=== PATIENT | female | born 1995 | race Caucasian/White ===

== ENCOUNTER 2019-04-28 12:23 | Inpatient (IN) | payer SELFPAY ==
[~2019-04-28] VITALS: Ht 182.9 cm; Wt 84.1 kg
[2019-04-28] VITALS (24 sets, daily range): BP systolic 56–148; BP diastolic 23–85
[2019-04-28] MEDS ORDERED: OXYTOCIN/NORMAL SALINE 500 ML IV SCH (12:36)
[2019-04-28] MEDS ORDERED: MINERAL OIL CONCENTRATE 99.9% 15 ML UDC TOP PRN (12:45)
[2019-04-28] MEDS ORDERED: AMPICILLIN FOR IV USE 2,000 MG in WATER (STERILE) FOR INJECTION 14.8 ML IV ONE (13:00)
[2019-04-28 13:11] LABS: BASOPHILS % (AUTO) 0 % (0-10); EOSINOPHILS # (AUTO) 0.1 10^3/uL (0.0-0.3); EOSINOPHILS % (AUTO) 1 % (0-10); HEMATOCRIT 35 % (35-52); HEMOGLOBIN 11.7 G/DL (11.5-16.0); LYMPHOCYTES # (AUTO) 1.4 X 10^3 (1.0-4.0); LYMPHOCYTES % (AUTO) 14 % (12-44); MEAN CORPUSCULAR HEMOGLOBIN 30 PG (25-34); MEAN CORPUSCULAR HGB CONC 34 G/DL (32-36); MEAN CORPUSCULAR VOLUME 88 FL (80-99); MEAN PLATELET VOLUME 8.7 FL (7.4-10.4); MONOCYTES # (AUTO) 0.8 X 10^3 (0.0-1.0); MONOCYTES % (AUTO) 8 % (0-12); NEUTROPHILS # (AUTO) 7.9 X 10^3 (1.8-7.8); NEUTROPHILS % (AUTO) 78 % (42-75); PLATELET COUNT 206 10^3/uL (130-400); RED CELL DISTRIBUTION WIDTH 15.8 % (10.0-14.5); WHITE BLOOD COUNT 10.1 10^3/uL (4.3-11.0)
[2019-04-28] MEDS: D5 LR IV SOLUTION 1,000 ML IV SCH ×2 (13:15→20:13)
[2019-04-28] MEDS: CATHETER FLUSH 10 ML SYR IV SCH ×2 (14:34→22:05)
[2019-04-28] MEDS ORDERED: PREN1TAB79 PO (14:54)
[2019-04-28] MEDS ORDERED: LIDOCAINE 1% INJ 20 ML 20 ML VIAL ONE ×3 (15:08→16:08)
[2019-04-28] MEDS ORDERED: fentaNYL INJECTION 100 MCG/2 ML AMP ONE ×2 (16:19→16:38)
[2019-04-28] MEDS: LACTATED RINGERS 1,000 ML IV SCH ×3 (16:30→19:47)
[2019-04-28] MEDS ORDERED: MIDAZOLAM 2 MG/2 ML (VERSED) VIAL ONE ×2 (16:38→18:25)
[2019-04-28] MEDS ORDERED: ETOMIDATE IV SOLN 20 MG/10 ML VIAL ONE (16:38)
[2019-04-28] MEDS ORDERED: SEVOFLURANE (ULTANE) 15 ML INHAL SOLN ONE ×2 (16:38→18:50)
[2019-04-28] MEDS ORDERED: SUCCINYLCHOLINE INJ 100 MG/5 ML SYR ONE (16:38)
[2019-04-28] MEDS ORDERED: ONDANSETRON 4 MG/2 ML (SDV) Z0FRAN ONE ×2 (16:38→17:19)
[2019-04-28] MEDS ORDERED: DEXAMETHASONE 10 MG/ML (DECADRON) 1 ML VIAL ONE (16:38)
[2019-04-28] MEDS ORDERED: NS IV 500 ML 500 ML IV NR (16:47)
[2019-04-28] MEDS ORDERED: NITRO DRIP 25000 MCG/D5W 0 ML IV ONE (16:55)
[2019-04-28] MEDS ORDERED: AMPICILLIN FOR IV USE 1,000 MG in WATER (STERILE) FOR INJECTION 7.4 ML IV SCH (17:00)
[2019-04-28] MEDS ORDERED: NS IV 500 ML 500 ML IV SCH ×2 (17:00→17:30)
[2019-04-28] MEDS ORDERED: ALBUMIN 5% 12.5 GM/250 ML 250 ML IV ONE ×2 (17:01)
[2019-04-28] MEDS ORDERED: HYDROmorphone 2 MG/ML VIAL (DILAUDID) ONE (17:19)
[2019-04-28] MEDS ORDERED: METHYLERGONOVINE 0.2 MG/ML (METHERGINE) AMP ONE ×2 (17:23→18:41)
[2019-04-28] MEDS ORDERED: NS IV 1000 ML 1,000 ML ONE ×2 (17:36→17:46)
[2019-04-28 18:06] LABS: HEMOGLOBIN 7.8 G/DL (11.5-16.0); MEAN PLATELET VOLUME 9.5 FL (7.4-10.4); RED CELL DISTRIBUTION WIDTH 15.4 % (10.0-14.5); WHITE BLOOD COUNT 23.6 10^3/uL (4.3-11.0)
[2019-04-28 18:14] LABS: INR 1.4 (0.8-1.4); PROTHROMBIN TIME PATIENT 18.1 SEC (12.2-14.7)
--- NOTE | 2019-04-28 18:22 | Pulmonary Consultation ---
History of Present Illness History of Present Illness Date Seen by Provider: Apr 28, 2019 Date of Admission Allergies and Home Medications Allergies Coded Allergies: No Known Drug Allergies (Unverified , 04/28/19) Home Medications Vit W-Ca,Fe,FA(<1 mg) 1 Each Tablet, 1 EACH PO DAILY, (Reported) Past Ayrliee-Gxigbs-Pmoqhw Hx Patient Social History Alcohol Use: Denies Use Recreational Drug Use: No Smoking Status: Never a Smoker Recent Foreign Travel: No Contact w/Someone Who Travel: No Recent Infectious Disease Expo: No Recent Hopitalizations: No Seasonal Allergies Seasonal Allergies: No Past Medical History Surgeries: No Respiratory: No Cardiac: No Neurological: No Expected Date of Delivery: Apr 07, 2019 Female Reproductive Disorders: Denies Genitourinary: No Gastrointestinal: No Musculoskeletal: No Endocrine: No HEENT: No Cancer: No Psychosocial: No Integumentary: No Blood Disorders: No Adverse Reaction/Blood Tranf: No Family Medical History Patient reports no known family medical history. Sepsis Event Evaluation Height, Weight, BMI Height: '" Weight: lbs. oz. kg; 25.14 BMI Method: Exam Exam Vital Signs Date Time Temp Pulse Resp B/P (MAP) Pulse Ox O2 Delivery O2 Flow Rate FiO2 04/28/19 15:30 83 16 127/58 (81) 98 Room Air 04/28/19 15:15 88 16 148/85 (106) 98 Room Air 04/28/19 15:00 83 16 117/77 (90) 98 Room Air 04/28/19 14:45 91 16 131/64 (86) 99 Room Air 04/28/19 14:30 80 16 119/64 (82) Room Air 04/28/19 14:15 36.9 86 16 121/72 (88) Room Air 04/28/19 14:00 83 16 116/68 (84) Room Air 04/28/19 12:40 36.8 77 16 120/68 (85) Room Air 04/28/19 12:40 36.8 77 16 98 Room Air Height & Weight Height: '" Weight: lbs. oz. kg; 25.14 BMI Method: Capillary Refill: Less Than 3 Seconds Results Lab Laboratory Tests 04/28/19 13:00 04/28/19 17:55 Assessment/Plan Assessment/Plan Acute respiratory failure -Continue vent -CXR pending -Check ABG Post delivery hemorrhage s/p transfusion -43 wk gestation -s/p 6 units of PRBC, 2 FFP, platelets. -trend H&H Q 6 Hypotension -secondary to hypovolemia improved -IVF -s/p transfusion DALIA PIERRE DO Apr 28, 2019 18:22
[2019-04-28] MEDS ORDERED: PROPOFOL DRIP (ICU) 100 ML IV ONE (18:39)
--- NOTE | 2019-04-28 18:42 | History & Physical-OB/GYN ---
History of Present Illness History of Present Illness Reason for visit/HPI Ms. Montero, A0 at 43 weeks was admitted to Labor & Delivery for onset of labor. Date of Admission Apr 28, 2019 at 12:23 Date Seen by a Provider: Apr 28, 2019 Time Seen by a Provider: 16:30 I consulted on this patient on 04/28/19 18:36 Attending Physician Gerry Mallory DO Admitting Physician Gerry Mallory DO Consult Allergies and Home Medications Allergies Coded Allergies: No Known Drug Allergies (Unverified , 04/28/19) Home Medications Vit W-Ca,Fe,FA(<1 mg) 1 Each Tablet, 1 EACH PO DAILY, (Reported) Patient Home Medication List Home Medication List Reviewed: Yes Past Lobjels-Cqknrv-Siyysj Hx Patient Social History Marrital Status: Number of Children: 1 Number of living children: 1 Employed/Student: unemployed Alcohol Use: Denies Use Recreational Drug Use: No Smoking Status: Never a Smoker Physical Abuse Screen: No Sexual Abuse: No Recent Foreign Travel: No Contact w/other who traveled: No Recent Hopitalizations: No Recent Infectious Disease Expo: No Seasonal Allergies Seasonal Allergies: No Surgeries No Respiratory No Cardiovascular No Neurological No Reproductive System Expected Date of Delivery: Apr 07, 2019 Female Reproductive Disorders: Denies Genitourinary No Gastrointestinal No Musculoskeletal No Endocrine History of Endocrine Disorders: No HEENT History of HEENT Disorders: No Cancer No Psychosocial History of Psychiatric Problem: No Integumentary History of Skin or Integumenta: No Blood Transfusions History of Blood Disorders: No Adverse Reaction to a Blood Tr: No Family Medical History Family Hx: Patient reports no known family medical history. Review of Systems Constitutional: see HPI Physical Exam Physical Exam Vital Signs Vital Signs Date Time Temp Pulse Resp B/P (MAP) Pulse Ox O2 Delivery O2 Flow Rate FiO2 04/28/19 18:25 118 18 140/76 (97) 100 Mechanical Ventilator 04/28/19 15:30 83 16 127/58 (81) 98 Room Air 04/28/19 15:15 88 16 148/85 (106) 98 Room Air 04/28/19 15:00 83 16 117/77 (90) 98 Room Air 04/28/19 14:45 91 16 131/64 (86) 99 Room Air 04/28/19 14:30 80 16 119/64 (82) Room Air 04/28/19 14:15 36.9 86 16 121/72 (88) Room Air 04/28/19 14:00 83 16 116/68 (84) Room Air 04/28/19 12:40 36.8 77 16 120/68 (85) Room Air 04/28/19 12:40 36.8 77 16 98 Room Air Capillary Refill : Less Than 3 Seconds Labs Laboratory Tests 04/28/19 13:00: White Blood Count 10.1, Red Blood Count 3.96L, Hemoglobin 11.7, Hematocrit 35, Mean Corpuscular Volume 88, Mean Corpuscular Hemoglobin 30, Mean Corpuscular Hemoglobin Concent 34, Red Cell Distribution Width 15.8H, Platelet Count 206, Mean Platelet Volume 8.7, Neutrophils (%) (Auto) 78H, Lymphocytes (%) (Auto) 14, Monocytes (%) (Auto) 8, Eosinophils (%) (Auto) 1, Basophils (%) (Auto) 0, Neutrophils # (Auto) 7.9H, Lymphocytes # (Auto) 1.4, Monocytes # (Auto) 0.8, Eosinophils # (Auto) 0.1, Basophils # (Auto) 0.0 04/28/19 17:50: Prothrombin Time 18.1H, INR Comment 1.4, Activated Partial Thromboplast Time 33, Fibrinogen 153L 04/28/19 17:55: White Blood Count 23.6H, Red Blood Count 2.56L, Hemoglobin 7.8#L, Hematocrit 23L , Mean Corpuscular Volume 91, Mean Corpuscular Hemoglobin 30, Mean Corpuscular Hemoglobin Concent 34, Red Cell Distribution Width 15.4H, Platelet Count 192, Mean Platelet Volume 9.5 General Appearance: No Apparent Distress, WD/WN Respiratory: Lungs Clear, Normal Breath Sounds Cardiovascular: Regular Rate, Rhythm, No Murmur Abdominal: normal bowel sounds, non tender Labia: WNL Vagina: WNL Cervix OS: open (Completely dilated) Uterus: Enlarged () Extremity: Normal Inspection, Non Tender Assessment/Plan Assessment and Plan Assessment: Intrauterine at 43 weeks 2. GBS Positive 3. Postterm Admission Diagnosis Admission Status: Inpatient Order (span 2 midnights) Reason for Inpatient Admission: Assessment: Intrauterine at 43 weeks 2. GBS Positive 3. Postterm Clinical Quality Measures DVT/VTE Risk/Contraindication: Risk Factor Score Per Nursin RFS Level Per Nursing on Admit: 1=Low/No VTE PPX GERRY MALLORY DO Apr 28, 2019 18:42
[2019-04-28] MEDS ORDERED: MIDAZOLAM 5 MG/5 ML (VERSED) VIAL ONE (18:44)
[2019-04-28] MEDS ORDERED: DIBUCAINE (NUPERCAINAL) 1% OINT 30 GM TOP PRN (18:45)
[2019-04-28] MEDS ORDERED: WITCH HAZEL(TUCKS) 40 EA JAR TOP PRN (18:45)
[2019-04-28] MEDS ORDERED: MEASLES,MUMPS,RUBELLA 1 EA INJ SQ ONE (18:45)
[2019-04-28] MEDS ORDERED: TETANUS,DIPTH,PERTUSS P/F (BOOSTRIX) 0.5 ML VIAL IM ONE (18:45)
[2019-04-28] MEDS ORDERED: ROCURONIUM 10 MG/ML 5 ML SYRINGE IV ONE (18:50)
[2019-04-28] MEDS ORDERED: PHENYLEPHRINE 100 MCG/ML 10 ML (ANESTHESIA) SYR ONE (18:50)
[2019-04-28] MEDS: METHYLERGONOVINE 0.2 MG/ML (METHERGINE) AMP IM SCH (18:53)
[2019-04-28] MEDS ORDERED: MIDAZOLAM 5 MG/5 ML (VERSED) VIAL IVP ONE (19:00)
--- NOTE | 2019-04-28 19:00 | OB Labor & Delivery Record ---
Vag Delivery Note Vag Delivery Note Date of Delivery: 04/28/19 Preoperative Diagnosis: Anayeli Montero is a (23 /Para / , Gestational Age (wks)43 gestation Postoperative Diagnosis: Intrauterine at 43 weeks gestation 2. Group B Strept Positive 3. Postterm Delivery 4. Macrosomia 5. Inverted Uterus Surgeon: TRUDY HARLEY Driver License Reviewing Officer: [None] Anesthesia: [Pudendal Block] Delivery Type: [Forceps-assisted Vaginal Delivery with Midline Episiotomy and Fourth Degree Extension] Findings: [] Viable [Male] infant, apgars [8, 9], weight [11 lb 10 oz] Lacerations: Midline Episiotomy and Fourth Degree Extension Intact placenta with 3 vessel cord. No nuchal cord, body cord or shoulder dystocia Estimated Blood Loss: [2500 ml] ml Complications: Inverted Uterus, Acute Blood Loss Condition: Critical Description of Procedure: The patient is a 23 year old female who presented [with the onset of labor]. She was admitted and informed consent was obtained. Her labor course was unremarkable. She progressed to complete dilatation and began to push. She was then set up for delivery. The infant's head with the assisted of outlet forceps over a midline episiotomy. The shoulders and remainder of the 's body were then delivered without difficulty. Upon delivery, the head was held below the level of the perineum and the mouth and nares were bulb suctioned. The cord was doubly clamped and cut and the was handed off to the pediatric staff where NRP protocol was followed. The placenta presented without complication, however, it appeared very large and once out, Ms. Montero experi enced excruciating pain. It was noted at that time that she an inverted uterus. I attempted to replace it immediately, but because Ms. Montero didn't have adequate anesthesia, I was unable to. The surgery team was called to take her back to surgery for replacement and laceration repair Examination of the vagina and perineum revealed a fourth degree extension laceration. At this time she was prepared for surgery. See Operative Report Vitals - Labs Vital Signs - I&O Vital Signs Date Time Temp Pulse Resp B/P (MAP) Pulse Ox O2 Delivery O2 Flow Rate FiO2 04/28/19 18:25 118 18 140/76 (97) 100 Mechanical Ventilator 04/28/19 15:30 83 16 127/58 (81) 98 Room Air 04/28/19 15:15 88 16 148/85 (106) 98 Room Air 04/28/19 15:00 83 16 117/77 (90) 98 Room Air 04/28/19 14:45 91 16 131/64 (86) 99 Room Air 04/28/19 14:30 80 16 119/64 (82) Room Air 04/28/19 14:15 36.9 86 16 121/72 (88) Room Air 04/28/19 14:00 83 16 116/68 (84) Room Air 04/28/19 12:40 36.8 77 16 120/68 (85) Room Air 04/28/19 12:40 36.8 77 16 98 Room Air Labs Laboratory Tests 04/28/19 13:00: White Blood Count 10.1, Red Blood Count 3.96L, Hemoglobin 11.7, Hematocrit 35, Mean Corpuscular Volume 88, Mean Corpuscular Hemoglobin 30, Mean Corpuscular Hemoglobin Concent 34, Red Cell Distribution Width 15.8H, Platelet Count 206, Mean Platelet Volume 8.7, Neutrophils (%) (Auto) 78H, Lymphocytes (%) (Auto) 14, Monocytes (%) (Auto) 8, Eosinophils (%) (Auto) 1, Basophils (%) (Auto) 0, Neutro phils # (Auto) 7.9H, Lymphocytes # (Auto) 1.4, Monocytes # (Auto) 0.8, Eosinophils # (Auto) 0.1, Basophils # (Auto) 0.0 04/28/19 17:50: Prothrombin Time 18.1H, INR Comment 1.4, Activated Partial Thromboplast Time 33, Fibrinogen 153L 04/28/19 17:55: White Blood Count 23.6H, Red Blood Count 2.56L, Hemoglobin 7.8#L, Hematocrit 23L , Mean Corpuscular Volume 91, Mean Corpuscular Hemoglobin 30, Mean Corpuscular Hemoglobin Concent 34, Red Cell Distribution Width 15.4H, Platelet Count 192, Mean Platelet Volume 9.5 TRUDY HARLEY DO Apr 28, 2019 19:00
--- NOTE | 2019-04-28 19:10 | Operative Report ---
Operative Report Date of Procedure/Surgery Apr 28, 2019 Surgeon (s) TRUDY HARLEY DO Rigging Up Man (s): None Post-Operative Diagnosis Uterine Inversion 2. Midline Episiotomy with Fourth Degree Extension Procedure Performed Uterine Retroversion Description of Procedure Anesthesia Type: General Estimated blood loss (mL): 3500 ml Specimen(s) collected/removed None Packing: Vaginal packing with just one laparotomy sponge Description of the Procedure Ms. Montero was taken to the Operating Room with IV fluids running. Once in the OR, general anesthesia was administered quickly. She was placed in the dorsal lithotomy position, vaginal prepped. At this point, utilizing uterine fundal pressure and a fist in the vagina, the uterus was retroverted to normal position. Once this was done, the midline episiotomy and fourth degree extension was repaired in the normal sterile fashion. Her uterus remained very boggy despite IV Pitocin and uterine fundal massage. I manually inserted my hand in her vaginal vault and applied direct pressure on her uterus--vaginally and fundally. Eventually, the bleeding slowed to a slow trickle after approximately 45 minutes of direct massage. Also, Ms. Montero received 6 units of pRBCs, 2 units of FFP, and 2 units of Cryoprecipitate during the surgical case. She was taken to the ICU in critical and guarded condition. Findings of the Procedure Inverted uterus, midline episiotomy with fourth degree extension, acute blood loss of 3500 ml. Allergies and Home Medications Allergies Coded Allergies: No Known Drug Allergies (Unverified , 04/28/19) Home Medications Vit W-Ca,Fe,FA(<1 mg) 1 Each Tablet, 1 EACH PO DAILY, (Reported) Patient Home Medication List Home Medication List Reviewed: Yes TRUDY HARLEY DO Apr 28, 2019 19:10
--- NOTE | 2019-04-28 19:12 | Pulmonary Procedures ---
Pulmonary Procedures Date of Procedure Date of Service: Apr 28, 2019 Lumen: triple (US guided ) Central Line Procedure: betadine prep, sterile drapes applied, sterile dressing applied Position: internal jugular (R) Anesthesia: local Complications: none Post Position: sutured, good blood return, position confirmed w/ CXR DALIA PIERRE DO Apr 28, 2019 19:12
[2019-04-28] MEDS ORDERED: HYDROmorphone 2 MG/ML VIAL (DILAUDID) IV ONE (19:15)
[2019-04-28] MEDS ORDERED: ONDANSETRON 4 MG/2 ML (SDV) Z0FRAN IVP PRN (19:15)
[2019-04-28 19:23] LABS: BASOPHILS % (AUTO) 0 % (0-10); EOSINOPHILS % (AUTO) 0 % (0-10); HEMATOCRIT 27 % (35-52); HEMOGLOBIN 9.3 G/DL (11.5-16.0); LYMPHOCYTES # (AUTO) 0.8 X 10^3 (1.0-4.0); LYMPHOCYTES % (AUTO) 5 % (12-44); MEAN CORPUSCULAR HEMOGLOBIN 31 PG (25-34); MEAN CORPUSCULAR HGB CONC 34 G/DL (32-36); MEAN CORPUSCULAR VOLUME 89 FL (80-99); MEAN PLATELET VOLUME 8.5 FL (7.4-10.4); MONOCYTES # (AUTO) 1.6 X 10^3 (0.0-1.0); MONOCYTES % (AUTO) 10 % (0-12); NEUTROPHILS # (AUTO) 13.9 X 10^3 (1.8-7.8); NEUTROPHILS % (AUTO) 85 % (42-75); PLATELET COUNT 132 10^3/uL (130-400); WHITE BLOOD COUNT 16.3 10^3/uL (4.3-11.0)
[2019-04-28] MEDS ORDERED: LACTATED RINGERS 2,000 ML IV ONE (19:24)
[2019-04-28] MEDS: PROPOFOL DRIP (ICU) 100 ML IV SCH ×2 (19:27→22:29)
[2019-04-28] MEDS ORDERED: OXYTOCIN/NORMAL SALINE 500 ML IV ONE (19:39)
--- NOTE | 2019-04-28 19:40 | Diagnostic Imaging Report ---
CHEST 1 VIEW, AP/PA ONLY Indication: Intubation Comparison: None available. Findings: ET tube has tip well-positioned 3.7 cm above the kareem. Enteric tube has tip in sidehole terminating in the proximal stomach. Lungs are clear. No pleural effusion or pneumothorax. The right sided central venous catheter has a slightly medialized course and could potentially be intra-arterial in nature. No pneumothorax or pleural effusion. Normal heart size. Impression: 1. Medialized course of the right central catheter could be intra-arterial. Correlation with output from the catheter is advised, and a blood gas sampling could be performed. Alternatively, CT of the chest could better assess position. 2. The ET and enteric tubes are in good position. Dictated by: Dictated on workstation # [id number]
[2019-04-28 19:43] LABS: ALANINE AMINOTRANSFERASE 16 U/L (0-55); ALBUMIN 2.7 GM/DL (3.2-4.5); ALKALINE PHOSPHATASE 54 U/L (40-136); BILIRUBIN,TOTAL 1.6 MG/DL (0.1-1.0); CALCIUM 6.8 MG/DL (8.5-10.1); CARBON DIOXIDE 20 MMOL/L (21-32); GLUCOSE 148 MG/DL (70-105); PHOSPHORUS 2.9 MG/DL (2.3-4.7); TOTAL PROTEIN 4.2 GM/DL (6.4-8.2); TRIGLYCERIDES 130 MG/DL (<150)
[2019-04-28] MEDS: fentaNYL INJECTION 1,250 MCG in NS (IVPB) 250 ML IV SCH ×2 (19:45→20:13)
[2019-04-28] MEDS: OXYTOCIN/NORMAL SALINE 500 ML IV SCH ×2 (19:45→23:52)
[2019-04-28 19:58] LABS: BUN/CREATININE RATIO 14; CHLORIDE 110 MMOL/L (98-107); CREATININE SERUM 0.58 MG/DL (0.60-1.30); GFR ESTIMATED > 60; MAGNESIUM 1.2 MG/DL (1.6-2.4); POTASSIUM 4.5 MMOL/L (3.6-5.0); SODIUM 138 MMOL/L (135-145)
[2019-04-28 20:57] LABS: ABG BASE EXCESS -3.1 MMOL/L (-2.5-2.5); ABG OXYGEN SATURATION 100 % (94-100); ABG PCO2 35 MMHG (35-45); ABG PO2 187 MMHG (79-93); ABG TCO2 22.1 MMOL/L (21.0-31.0)
[2019-04-28 20:58] LABS: ALLENS TEST ARTLINE; INSPIRED O2 35%; PATIENT TEMP 36.6; VENTILATOR YES
[2019-04-28 21:13] LABS: ABG BASE EXCESS -1.9 MMOL/L (-2.5-2.5); ABG OXYGEN SATURATION 65 % (94-100); ABG PCO2 45 MMHG (35-45); ABG TCO2 24.5 MMOL/L (21.0-31.0)
[2019-04-28 21:15] LABS: ABG PH 7.33 (7.37-7.43); ABG PO2 35 MMHG (79-93); INSPIRED O2 35
[2019-04-28] MEDS ORDERED: NOREPINEPHRINE 4 MG/250 ML NS 250 ML IV ONE (21:15)
[2019-04-28 21:16] LABS: PATIENT TEMP 36.8; VENTILATOR YES
[2019-04-28] MEDS: NOREPINEPHRINE 4 MG/250 ML NS 250 ML IV SCH (22:05)
[2019-04-28 23:16] LABS: HEMOGLOBIN 7.9 G/DL (11.5-16.0)
[2019-04-28] MEDS ORDERED: NS (IVPB) 250 ML ONE (23:43)
[2019-04-29] VITALS (31 sets, daily range): BP systolic 91–113; BP diastolic 46–85
[2019-04-29] MEDS ORDERED: NS IV 500 ML 500 ML IV SCH
[2019-04-29] MEDS: METHYLERGONOVINE 0.2 MG/ML (METHERGINE) AMP IM SCH ×4 (00:12→18:06)
[2019-04-29] MEDS ORDERED: WITCH HAZEL(TUCKS) 40 EA JAR ONE (02:22)
[2019-04-29] MEDS ORDERED: DIBUCAINE (NUPERCAINAL) 1% OINT 30 GM ONE (02:22)
[2019-04-29 03:18] LABS: ABG BASE EXCESS -1.7 MMOL/L (-2.5-2.5); ABG OXYGEN SATURATION 99 % (94-100); ABG PCO2 35 MMHG (35-45); ABG PH 7.42 (7.37-7.43); ABG PO2 148 MMHG (79-93); ABG TCO2 23.2 MMOL/L (21.0-31.0); ALLENS TEST ARLTINE; INSPIRED O2 25%; PATIENT TEMP 37.2; VENTILATOR YES
[2019-04-29 03:29] LABS: INR 1.4 (0.8-1.4); PROTHROMBIN TIME PATIENT 17.6 SEC (12.2-14.7)
[2019-04-29] MEDS: PROPOFOL DRIP (ICU) 100 ML IV SCH (03:35)
[2019-04-29 03:45] LABS: BASOPHILS % (AUTO) 0 % (0-10); EOSINOPHILS % (AUTO) 0 % (0-10); HEMATOCRIT 25 % (35-52); HEMOGLOBIN 8.8 G/DL (11.5-16.0); LYMPHOCYTES # (AUTO) 1.8 X 10^3 (1.0-4.0); LYMPHOCYTES % (AUTO) 14 % (12-44); MEAN CORPUSCULAR HEMOGLOBIN 31 PG (25-34); MEAN CORPUSCULAR HGB CONC 36 G/DL (32-36); MEAN CORPUSCULAR VOLUME 86 FL (80-99); MEAN PLATELET VOLUME 8.9 FL (7.4-10.4); MONOCYTES # (AUTO) 1.3 X 10^3 (0.0-1.0); MONOCYTES % (AUTO) 10 % (0-12); NEUTROPHILS # (AUTO) 9.3 X 10^3 (1.8-7.8); NEUTROPHILS % (AUTO) 75 % (42-75); PLATELET COUNT 129 10^3/uL (130-400); RED CELL DISTRIBUTION WIDTH 14.2 % (10.0-14.5); WHITE BLOOD COUNT 12.5 10^3/uL (4.3-11.0)
[2019-04-29 04:11] LABS: BUN/CREATININE RATIO 19; CALCIUM 6.9 MG/DL (8.5-10.1); CARBON DIOXIDE 20 MMOL/L (21-32); CHLORIDE 110 MMOL/L (98-107); CREATININE SERUM 0.53 MG/DL (0.60-1.30); GFR ESTIMATED > 60; GLUCOSE 87 MG/DL (70-105); MAGNESIUM 1.2 MG/DL (1.6-2.4); PHOSPHORUS 2.2 MG/DL (2.3-4.7); POTASSIUM 3.9 MMOL/L (3.6-5.0); SODIUM 136 MMOL/L (135-145)
[2019-04-29] MEDS: MAGNESIUM 1 GM/100 ML IVPB 100 ML IV SCH ×3 (05:11→06:38)
[2019-04-29] MEDS: KCL 20 MEQ TAB (K-DUR) PO SCH (05:12)
[2019-04-29] MEDS: POTASSIUM CL 10MEQ/50ML IVPB 50 ML IV SCH (05:12)
[2019-04-29] MEDS: NOREPINEPHRINE 4 MG/250 ML NS 250 ML IV SCH ×3 (05:12→19:38)
--- NOTE | 2019-04-29 05:58 | Pulmonary Progress Note ---
Subjective Time Seen by a Provider: 05:57 Subjective/Events-last exam PT is sedated on vent. Sepsis Event Evaluation Height, Weight, BMI Height: '" Weight: lbs. oz. kg; 25.14 BMI Method: Exam Exam Vital Signs Date Time Temp Pulse Resp B/P (MAP) Pulse Ox O2 Delivery O2 Flow Rate FiO2 04/29/19 04:00 Mechanical Ventilator 25 04/29/19 04:00 95 17 95/79 (84) 98 Mechanical Ventilator 25.00 04/29/19 04:00 37.1 04/29/19 03:35 103/74 04/29/19 03:00 81 18 109/75 (86) 100 Mechanical Ventilator 25.00 04/29/19 02:22 37.1 90 18 101/76 98 Mechanical Ventilator 25 04/29/19 02:00 85 17 108/85 (93) 99 Mechanical Ventilator 25.00 04/29/19 01:24 85 18 99 25 04/29/19 01:00 86 04/29/19 01:00 85 18 106/67 (80) 100 Mechanical Ventilator 25.00 04/29/19 00:49 Mechanical Ventilator 25.00 04/29/19 00:48 37.2 85 18 100 Mechanical Ventilator 35 04/29/19 00:29 37.3 103 18 92/60 99 Mechanical Ventilator 35 04/29/19 00:00 37.2 04/29/19 00:00 Mechanical Ventilator 35 04/29/19 00:00 105 18 104/53 (70) 99 Mechanical Ventilator 35.00 04/28/19 23:00 106 18 101/53 (69) 100 Mechanical Ventilator 35.00 04/28/19 22:29 112/53 04/28/19 22:00 113 17 113/56 (75) 100 Mechanical Ventilator 35.00 04/28/19 21:12 117 18 100 35 04/28/19 21:00 117 18 113/47 (69) 100 Mechanical Ventilator 35.00 04/28/19 20:00 Mechanical Ventilator 35 04/28/19 19:55 35.5 105 18 107/52 (70) 97 Mechanical Ventilator 35.00 04/28/19 19:27 111 04/28/19 19:20 35.1 14 100 Mechanical Ventilator 04/28/19 19:20 Mechanical Ventilator 04/28/19 19:19 35.2 110 15 101/47 100 35 04/28/19 19:15 123 18 100 35 04/28/19 19:10 35.1 14 100 Mechanical Ventilator 04/28/19 19:05 Mechanical Ventilator 04/28/19 19:00 101 13 112/56 (74) 100 Mechanical Ventilator 35.00 04/28/19 19:00 14 100 Mechanical Ventilator 04/28/19 19:00 102 04/28/19 18:50 14 100 Mechanical Ventilator 04/28/19 18:50 Mechanical Ventilator 04/28/19 18:43 35.1 123 12 135/72 Mechanical Ventilator 35 04/28/19 18:40 35.2 14 100 Mechanical Ventilator 04/28/19 18:35 Mechanical Ventilator 04/28/19 18:30 14 100 Mechanical Ventilator 04/28/19 18:25 118 18 140/76 (97) 100 Mechanical Ventilator 04/28/19 18:22 35.3 20 100 Mechanical Ventilator 04/28/19 18:22 Mechanical Ventilator 04/28/19 16:43 65 20 72/35 (47) Room Air 04/28/19 16:42 75 20 59/23 (35) 99 Room Air 04/28/19 16:40 35.9 63 20 56/30 (39) Room Air 04/28/19 16:36 67 20 71/36 (48) Room Air 04/28/19 16:30 36.6 04/28/19 16:12 80 20 129/58 (81) Room Air 04/28/19 15:47 36.0 04/28/19 15:30 83 16 127/58 (81) 98 Room Air 04/28/19 15:15 88 16 148/85 (106) 98 Room Air 04/28/19 15:00 83 16 117/77 (90) 98 Room Air 04/28/19 14:45 91 16 131/64 (86) 99 Room Air 04/28/19 14:30 80 16 119/64 (82) Room Air 04/28/19 14:15 36.9 86 16 121/72 (88) Room Air 04/28/19 14:00 83 16 116/68 (84) Room Air 04/28/19 12:40 36.8 77 16 120/68 (85) Room Air 04/28/19 12:40 36.8 77 16 98 Room Air I & O 04/29/19 07:00 Intake Total 14.8 ml Output Total 478 ml Balance -463.2 ml Height & Weight Height: '" Weight: lbs. oz. kg; 25.14 BMI Method: General Appearance: No Apparent Distress, WD/WN Respiratory: Lungs Clear, Normal Breath Sounds Cardiovascular: Regular Rate, Rhythm, No Murmur Capillary Refill: Less Than 3 Seconds Gastrointestinal: normal bowel sounds, non tender Extremity: Normal Inspection, Non Tender Results Lab Laboratory Tests 04/28/19 13:00 04/28/19 17:55 04/28/19 19:15 04/28/19 23:07 04/29/19 03:33 04/29/19 03:48 Assessment/Plan Assessment/Plan Acute respiratory failure -Vent -Will wean vent Post delivery hemorrhage s/p transfusion -43 wk gestation -s/p 7 units of PRBC, 2 FFP, platelets. -trend H&H Q 6 Hypotension -secondary to hypovolemia improved -IVF -s/p transfusion -d/c propofol DALIA PIERRE DO Apr 29, 2019 05:58
[2019-04-29] MEDS: LACTATED RINGERS 1,000 ML IV SCH ×2 (06:09→15:45)
[2019-04-29] MEDS: CATHETER FLUSH 10 ML SYR IV SCH ×3 (06:38→19:38)
[2019-04-29] MEDS ORDERED: RT-ALBUTEROL/IPRATROPIUM 3 ML (DUONEB) VIAL INH PRN (06:45)
[2019-04-29] MEDS: D5 LR IV SOLUTION 1,000 ML IV SCH ×3 (06:51→19:38)
--- NOTE | 2019-04-29 07:22 | Progress Note ---
Standard Progress Note Progress Notes/Assess & Plan Date Seen by a Provider: Apr 29, 2019 Time Seen by a Provider: 07:00 Progress/Assessment & Plan Subjective: Ms. Montero is PPD#1 from a FaVD and POD#1 a Uterine Retroversion after a Uterine Inversion--she was taken to surgery to do this and while in surgery, her fourth degree extension laceration was repaired. She awake, alert and talkative. Admits to being sore, otherwise is doing well. From the Nursing Staff, her lochia was scant. She was extubated just prior to my interview. Objective: Vital sign are stable at this point Heart: Regular rate and rhythm without appreciable murmur Lungs: Clear to auscultation bilaterally with good respiratory effort Abdomen: Good bowel sounds, uterus 5 cm below umbilicus--very tender to palpation Assessment: PPD#1 from Forceps-assisted Vaginal Delivery with Midline Episiotomy and Fourth Degree Extension 2. POD#1 from a Uterine Retroversion after an Uterine Inversion 3. Acute Blood Loss Plan: Ms. Montero was extubated this morning. She appears stable at this point. Normal management per protocol. Dr. Talbot will manage care while in ICU. I suspect that she will be transferred back to the Obstetrical Unit today once pressure medications are discontinued. TRUDY HARLEY DO Apr 29, 2019 07:22
--- NOTE | 2019-04-29 07:41 | Diagnostic Imaging Report ---
INDICATION: Mechanical ventilation. TECHNIQUE: Single view chest 3:27 AM. CORRELATION STUDY: 04/28/2019 FINDINGS: Endotracheal tube tip at the level of the clavicles. Gastric tube passes below the left hemidiaphragm. Heart size and mediastinum generally stable. Right IJ central line tip over the right para mediastinal region with an unchanged somewhat medial course. There does appear to be more prominent perihilar streaky lung markings. The peripheral lung longo demonstrate no consolidating infiltrate. IMPRESSION: 1. Stable support lines and tubes. This includes a somewhat medial course of the right IJ central line. Correlation with vascular output/return. 2. Increasing particularly perihilar bronchovascular markings. This is nonspecific but can be seen with reactive airway changes or perhaps developing central edema. Dictated by: Dictated on workstation # [id number]
[2019-04-29] MEDS: ACETAMINOPHEN 500 MG TAB (TYLENOL) PO PRN ×3 (07:43→18:15)
[2019-04-29] MEDS ORDERED: BENZOCAINE/MENTHOL (DERMOPLAST) 60 ML CAN TP PRN (07:45)
[2019-04-29] MEDS: RT-ALBUTEROL/IPRATROPIUM 3 ML (DUONEB) VIAL INH SCH ×4 (10:06→22:38)
--- NOTE | 2019-04-29 12:54 | Anesthesia-General Post-Op ---
General Patient Condition Mental Status/LOC: Same as Preop Cardiovascular: Satisfactory Nausea/Vomiting: Absent Respiratory: Satisfactory Pain: Controlled Complications: Absent Post Op Complications Complications None Follow Up Care/Instructions Patient Instructions None needed. Anesthesia/Patient Condition Patient Condition Patient is doing well, no complaints, stable vital signs, no apparent adverse anesthesia problems. No complications reported per nursing. AUSTIN GUERRA CRNA Apr 29, 2019 12:54
[2019-04-29] MEDS: IBUPROFEN 800 MG (MOTRIN) TAB PO SCH ×2 (15:45→22:38)
[2019-04-29 16:08] LABS: HEMOGLOBIN 7.4 G/DL (11.5-16.0)
[2019-04-29] MEDS ORDERED: NS IV 500 ML 500 ML ONE (16:40)
[2019-04-30] VITALS (13 sets, daily range): BP systolic 94–117; BP diastolic 51–69
[2019-04-30 00:11] LABS: HEMOGLOBIN 7.6 G/DL (11.5-16.0)
[2019-04-30] MEDS: NOREPINEPHRINE 4 MG/250 ML NS 250 ML IV SCH (01:34)
[2019-04-30] MEDS: D5 LR IV SOLUTION 1,000 ML IV SCH (01:34)
[2019-04-30] MEDS: CATHETER FLUSH 10 ML SYR IV SCH (01:34)
[2019-04-30] MEDS: LACTATED RINGERS 1,000 ML IV SCH ×2 (01:34→03:32)
[2019-04-30] MEDS: POTASSIUM CL 10MEQ/50ML IVPB 50 ML IV SCH (01:35)
[2019-04-30] MEDS: MAGNESIUM 1 GM/100 ML IVPB 100 ML IV SCH ×3 (01:35→07:41)
[2019-04-30] MEDS: KCL 20 MEQ TAB (K-DUR) PO SCH (01:35)
[2019-04-30] MEDS: RT-ALBUTEROL/IPRATROPIUM 3 ML (DUONEB) VIAL INH SCH ×4 (02:02→14:52)
[2019-04-30 03:33] LABS: BASOPHILS % (AUTO) 0 % (0-10); EOSINOPHILS # (AUTO) 0.1 10^3/uL (0.0-0.3); EOSINOPHILS % (AUTO) 1 % (0-10); HEMATOCRIT 23 % (35-52); HEMOGLOBIN 7.9 G/DL (11.5-16.0); LYMPHOCYTES # (AUTO) 1.3 X 10^3 (1.0-4.0); LYMPHOCYTES % (AUTO) 13 % (12-44); MEAN CORPUSCULAR HGB CONC 35 G/DL (32-36); MEAN CORPUSCULAR VOLUME 85 FL (80-99); MEAN PLATELET VOLUME 8.3 FL (7.4-10.4); MONOCYTES # (AUTO) 0.9 X 10^3 (0.0-1.0); MONOCYTES % (AUTO) 9 % (0-12); NEUTROPHILS # (AUTO) 7.5 X 10^3 (1.8-7.8); NEUTROPHILS % (AUTO) 77 % (42-75); PLATELET COUNT 113 10^3/uL (130-400); RED CELL DISTRIBUTION WIDTH 16.2 % (10.0-14.5); WHITE BLOOD COUNT 9.8 10^3/uL (4.3-11.0)
[2019-04-30] MEDS: IBUPROFEN 800 MG (MOTRIN) TAB PO SCH ×3 (03:33→23:23)
[2019-04-30 03:37] LABS: MEAN CORPUSCULAR HEMOGLOBIN 29 PG (25-34)
[2019-04-30 03:53] LABS: BUN/CREATININE RATIO 10; CALCIUM 7.7 MG/DL (8.5-10.1); CARBON DIOXIDE 23 MMOL/L (21-32); CHLORIDE 110 MMOL/L (98-107); CREATININE SERUM 0.52 MG/DL (0.60-1.30); GFR ESTIMATED > 60; GLUCOSE 88 MG/DL (70-105); MAGNESIUM 1.5 MG/DL (1.6-2.4); PHOSPHORUS 3.1 MG/DL (2.3-4.7); POTASSIUM 3.8 MMOL/L (3.6-5.0); SODIUM 139 MMOL/L (135-145)
--- NOTE | 2019-04-30 04:40 | Pulmonary Progress Note ---
Subjective Time Seen by a Provider: 04:36 Subjective/Events-last exam Pt appears to be doing better. Sepsis Event Evaluation Height, Weight, BMI Height: '" Weight: lbs. oz. kg; 25.14 BMI Method: Exam Exam Vital Signs Date Time Temp Pulse Resp B/P (MAP) Pulse Ox O2 Delivery O2 Flow Rate FiO2 04/30/19 04:00 92 15 107/61 (76) 97 Room Air 04/30/19 04:00 92 Room Air 04/30/19 03:00 100 17 104/57 (73) 96 Room Air 04/30/19 02:00 98 Room Air 04/30/19 02:00 87 15 103/66 (78) 98 Room Air 04/30/19 01:00 100 04/30/19 01:00 95 24 106/64 (78) 95 Room Air 04/30/19 00:02 37.0 04/30/19 00:00 90 15 103/56 (72) 97 Room Air 04/30/19 00:00 95 Room Air 04/29/19 23:00 98 15 104/56 (72) 98 Room Air 04/29/19 22:35 97 Room Air 04/29/19 22:00 79 16 94/58 (70) 99 Room Air 04/29/19 21:00 80 17 101/53 (69) 97 Room Air 04/29/19 20:30 37.0 91 18 93/51 96 Room Air 04/29/19 20:00 95 Room Air 04/29/19 20:00 96 18 93/51 (65) 97 Room Air 04/29/19 19:34 36.8 Room Air 04/29/19 19:00 93 04/29/19 19:00 87 13 104/58 (73) 100 Nasal Cannula 2.00 04/29/19 18:57 98 Room Air 04/29/19 18:00 89 18 97/58 (71) 100 Nasal Cannula 2.00 04/29/19 17:22 36.8 101 18 96/58 98 Room Air 04/29/19 17:16 36.8 105 16 100/52 98 Room Air 04/29/19 17:00 102 16 100/52 (68) 100 Nasal Cannula 2.00 04/29/19 16:00 105 18 98/53 (68) 100 Nasal Cannula 2.00 04/29/19 16:00 37.2 1/22/20 15:43 98 Room Air 04/29/19 15:00 103 13 97/59 (72) 98 Nasal Cannula 2.00 04/29/19 14:04 99 Room Air 04/29/19 14:00 107 17 106/62 (77) 99 Nasal Cannula 2.00 04/29/19 13:00 122 18 101/60 (74) 100 Nasal Cannula 2.00 04/29/19 12:45 100 04/29/19 12:00 37.2 04/29/19 12:00 101 8 103/54 (70) 100 Nasal Cannula 2.00 04/29/19 11:03 98 Room Air 04/29/19 11:00 101 14 102/56 (71) 98 Nasal Cannula 2.00 04/29/19 10:06 97 Room Air 04/29/19 10:05 Room Air 04/29/19 10:00 85 12 101/60 (74) 98 Nasal Cannula 2.00 04/29/19 09:10 Nasal Cannula 2.00 04/29/19 09:00 80 15 92/46 (61) 99 Nasal Cannula 3.00 04/29/19 08:43 Nasal Cannula 3.00 04/29/19 08:00 100 Nasal Cannula 6.00 04/29/19 08:00 93 14 91/69 (76) 100 Nasal Cannula 6.00 04/29/19 07:52 36.8 04/29/19 07:00 104 9 113/84 (94) 100 Nasal Cannula 6.00 04/29/19 07:00 Nasal Cannula 6.00 04/29/19 06:47 103 04/29/19 06:26 100 Nasal Cannula 6.00 04/29/19 06:11 106 26 99 25 04/29/19 06:00 91 18 100/58 (72) 99 Mechanical Ventilator 25.00 04/29/19 05:00 95 17 99/62 (74) 98 Mechanical Ventilator 25.00 I & O 04/30/19 07:00 Intake Total 2030 ml Output Total 4965 ml Balance -2935 ml Height & Weight Height: '" Weight: lbs. oz. kg; 25.14 BMI Method: General Appearance: No Apparent Distress, WD/WN HEENT: PERRL/EOMI Respiratory: Lungs Clear, Normal Breath Sounds Cardiovascular: Regular Rate, Rhythm, No Murmur Capillary Refill: Less Than 3 Seconds Gastrointestinal: normal bowel sounds, non tender Extremity: Normal Inspection, Non Tender Neurologic/Psychiatric: Alert, Oriented x3 Skin: Normal Color, Warm/Dry Results Lab Laboratory Tests 04/28/19 13:00 04/28/19 17:55 04/28/19 19:15 04/28/19 23:07 04/29/19 03:33 04/29/19 03:48 04/29/19 10:00 04/29/19 15:55 04/30/19 00:00 04/30/19 03:30 Assessment/Plan Assessment/Plan Post delivery hemorrhage s/p transfusions -- -Change H&H to q12 -43 wk gestation -s/p 8 units of PRBC, 2 FFP, platelets. Hypotension resolved respiratory failure - resolved DALIA PIERRE DO Apr 30, 2019 04:40
[2019-04-30] MEDS ORDERED: MAGNESIUM 1 GM/100 ML IVPB 200 ML IV ONE (05:57)
--- NOTE | 2019-04-30 08:28 | Progress Note ---
Standard Progress Note Progress Notes/Assess & Plan Date Seen by a Provider: Apr 30, 2019 Time Seen by a Provider: 08:15 Progress/Assessment & Plan Subjective: Ms. Montero is PPD#1 from a FaVD and POD#1 a Uterine Retroversion after a Uterine Inversion--she was taken to surgery to do this and while in surgery, her fourth degree extension laceration was repaired. She awake, alert and talkative. Admits to being sore, otherwise is doing well. From the Nursing Staff, her lochia was scant. She was extubated just prior to my interview. Objective: Vital sign are stable at this point Heart: Regular rate and rhythm without appreciable murmur Lungs: Clear to auscultation bilaterally with good respiratory effort Abdomen: Good bowel sounds, uterus 5 cm below umbilicus--very tender to palpation Assessment: PPD#1 from Forceps-assisted Vaginal Delivery with Midline Episiotomy and Fourth Degree Extension 2. POD#1 from a Uterine Retroversion after an Uterine Inversion 3. Acute Blood Loss Plan: Ms. Montero was extubated this morning. She appears stable at this point. Normal management per protocol. Dr. Talbot will manage care while in ICU. I suspect that she will be transferred back to the Obstetrical Unit today once pressure medications are discontinued. TRUDY HARLEY DO Apr 30, 2019 08:28
--- NOTE | 2019-04-30 08:35 | Progress Note ---
Standard Progress Note Progress Notes/Assess & Plan Date Seen by a Provider: Apr 30, 2019 Time Seen by a Provider: 08:15 Progress/Assessment & Plan Subjective: Ms. Montero is PPD#1 from a FaVD and POD#1 a Uterine Retroversion after a Uterine Inversion--she was taken to surgery to do this and while in surgery, her fourth degree extension laceration was repaired. She awake, alert and talkative. Admits to being sore, otherwise is doing well. From the Nursing Staff, her lochia was scant. She was extubated just prior to my interview. Objective: Vital sign are stable at this point Heart: Regular rate and rhythm without appreciable murmur Lungs: Clear to auscultation bilaterally with good respiratory effort Abdomen: Good bowel sounds, uterus 5 cm below umbilicus--very tender to palpation Assessment: PPD#1 from Forceps-assisted Vaginal Delivery with Midline Episiotomy and Fourth Degree Extension 2. POD#1 from a Uterine Retroversion after an Uterine Inversion 3. Acute Blood Loss Plan: Ms. Montero was extubated this morning. She appears stable at this point. Normal management per protocol. Dr. Talbot will manage care while in ICU. I suspect that she will be transferred back to the Obstetrical Unit today once pressure medications are discontinued. April 30, 2019 Subjective: Ms. Montero admits to feeling much better. Tolerating a Regular Diet. Pain is under control. Objective: Vital signs are stable. H/H 7.12/29 Heart: Increased heart rate, without murmur Lungs: Clear to auscultation bilaterally with good respiratory effort Abdomen: Good bowel sounds, no rebound, no guarding, uterine fundus is beer still runner compounder Extremities: No cyanosis or clubbing. +1 edema of lower extremities Neurological: Alert, oriented x 3, and cooperative Assessment: PPD#2 FaVD 2. POD#2 Retroversion of Uterus 3. Acute Blood Loss 4. Anemia 5. Respiratory Failure (resolved) Plan: Ms. Montero is much improved. She will be moved out of the ICU back to the Floor. We will watch overnight, if no problems, then I will discharge her to home. TRUDY HARLEY DO Apr 30, 2019 08:34
[2019-04-30] MEDS: DOXYCYCLINE 100 MG (VIBRAMYCIN) TABLET PO SCH (17:17)
[2019-04-30 18:11] LABS: HEMOGLOBIN 8.1 G/DL (11.5-16.0)
[2019-05-01] MEDS: RT-ALBUTEROL/IPRATROPIUM 3 ML (DUONEB) VIAL INH SCH ×4 (01:25→06:30)
[2019-05-01 02:12] VITALS: BP 107/55
[2019-05-01 05:31] LABS: BASOPHILS % (AUTO) 0 % (0-10); EOSINOPHILS # (AUTO) 0.2 10^3/uL (0.0-0.3); EOSINOPHILS % (AUTO) 2 % (0-10); HEMATOCRIT 23 % (35-52); HEMOGLOBIN 7.7 G/DL (11.5-16.0); LYMPHOCYTES # (AUTO) 1.8 X 10^3 (1.0-4.0); LYMPHOCYTES % (AUTO) 18 % (12-44); MEAN CORPUSCULAR HEMOGLOBIN 30 PG (25-34); MEAN CORPUSCULAR HGB CONC 34 G/DL (32-36); MEAN CORPUSCULAR VOLUME 88 FL (80-99); MEAN PLATELET VOLUME 8.5 FL (7.4-10.4); MONOCYTES # (AUTO) 0.9 X 10^3 (0.0-1.0); MONOCYTES % (AUTO) 9 % (0-12); NEUTROPHILS # (AUTO) 6.9 X 10^3 (1.8-7.8); NEUTROPHILS % (AUTO) 71 % (42-75); PLATELET COUNT 127 10^3/uL (130-400); RED CELL DISTRIBUTION WIDTH 16.3 % (10.0-14.5); WHITE BLOOD COUNT 9.8 10^3/uL (4.3-11.0)
[2019-05-01 05:55] LABS: BUN/CREATININE RATIO 20; CARBON DIOXIDE 21 MMOL/L (21-32); CHLORIDE 110 MMOL/L (98-107); CREATININE SERUM 0.54 MG/DL (0.60-1.30); GFR ESTIMATED > 60; GLUCOSE 85 MG/DL (70-105); MAGNESIUM 1.6 MG/DL (1.6-2.4); PHOSPHORUS 3.9 MG/DL (2.3-4.7); POTASSIUM 3.8 MMOL/L (3.6-5.0); SODIUM 139 MMOL/L (135-145)
[2019-05-01 06:44] VITALS: BP 110/63
--- NOTE | 2019-05-01 07:23 | Diagnostic Imaging Report ---
INDICATION: Shortness of breath Portable chest 3:43 AM Heart size and pulmonary vascularity are normal. Lungs are clear. There are no effusions or pneumothoraces. IMPRESSION: Negative chest Dictated by: Dictated on workstation # [id number]
[2019-05-01] MEDS ORDERED: OXC5T PO (07:31)
[2019-05-01] MEDS ORDERED: IRON1TAB97 PO (07:31)
[2019-05-01] MEDS ORDERED: IBUP-1780 PO (07:31)
[2019-05-01] MEDS ORDERED: ACET-93 PO (07:31)
[2019-05-01] MEDS ORDERED: DOXY100T2 PO (07:31)
--- NOTE | 2019-05-01 07:39 | Discharge Summary ---
Diagnosis/Chief Complaint Date of Admission Apr 28, 2019 at 12:23 Date of Discharge May 01, 2019 Discharge Date: May 01, 2019 Discharge Time: 08:00 Admission Diagnosis Admission Diagnosis Intrauterine at 43 weeks 2. Postterm 3. GBS Positive Discharge Diagnosis Intrauterine at 43 weeks--delivered 2. Postterm 3. GBS Positive 4. Uterine Inversion 5. Uterine Prolapse 6. Acute Blood Loss Anemia 7. Respiratory Failure Reason Hospital Visit Ms. Montero, A0 at 43 weeks was admitted to Labor & Delivery for onset of labor. Discharge Summary Hospital Course Was the Problem List Reviewed?: Yes Hospital Course Ms. Montero, 23 year old [facility] woman, A0 at 43 weeks gestation was admitted for the onset of labor. Once admitted her labor was augmented with Pitocin. I artificially rupture her membranes. She progressed to complete. She was given a Pudendal Block for antepartum pain management. With the assist of outlet forceps she delivered a healthy, viable male (weighing 11 pounds, 10 ounces). Upon delivery of the placenta, the uterus totally prolapsed and inverted. I tried to immediately replace, but without adequate anesthesia was unable to do so. She was taken to the Operating Room where the uterus was retroverted to normal position and her fourth degree laceration was repaired in the normal sterile fashion. While in the OR, Ms. Montero received 6 units of packed RBCs. After surgery, she was taken to the ICU for respiratory failure and further evaluation by Dr. Talbot (Recycling Assistant). While in the unit, she received IV pressors, pain management, two more units of packed RBCs, a central line and obstetrical care. She was in the unit for two and a half days. Once stable she was returned to the Obstetrical floor. On PPD#3, she was voiding freely, tolerating a Regular Diet, ambulating without assist, controlling her pain with oral medications. Her heart rate remains elevated and her hemoglobin is still low. Ms. Montero is without complaint and stable. Consequently, we will discharge her to home with instructions, prescriptions, and a follow up appointment for next week. Labs Laboratory Tests 04/28/19 13:00: Red Blood Count 3.96L, Red Cell Distribution Width 15.8H, Neutrophils (%) (Auto) 78H, Neutrophils # (Auto) 7.9H 04/28/19 17:50: Prothrombin Time 18.1H, Fibrinogen 153L 04/28/19 17:55: Red Blood Count 2.56L, Red Cell Distribution Width 15.4H, White Blood Count 23.6H, Hemoglobin 7.8#L, Hematocrit 23L 04/28/19 19:15: Red Blood Count 3.04L, Neutrophils (%) (Auto) 85H, Neutrophils # (Auto) 13.9H, White Blood Count 16.3H, Hemoglobin 9.3L, Hematocrit 27L, Lymphocytes (%) (Auto) 5L, Lymphocytes # (Auto) 0.8L, Monocytes # (Auto) 1.6H, Chloride Level 110H, Carbon Dioxide Level 20L, Creatinine 0.58L, Glucose Level 148H, Calcium Level 6.8L, Corrected Calcium 7.8L, Magnesium Level 1.2L, Total Bilirubin 1.6H, Total Protein 4.2L, Albumin 2.7L 04/28/19 20:50: Arterial Blood Partial Pressure O2 187H, Arterial Blood HCO3 21L, Arterial Blood Base Excess -3.1L 04/28/19 21:08: Arterial Blood Partial Pressure O2 35*L, Arterial Blood pH 7.33*L, Arterial Blood Oxygen Saturation 65L 04/28/19 23:07: Hemoglobin 7.9L, Hematocrit 23L 04/29/19 03:11: Arterial Blood Partial Pressure O2 148H, Arterial Blood HCO3 22L, Prothrombin Time 17.6H 04/29/19 03:33: White Blood Count 12.5H, Red Blood Count 2.86L, Hemoglobin 8.8L, Hematocrit 25L, Platelet Count 129L, Neutrophils # (Auto) 9.3H, Monocytes # (Auto) 1.3H 04/29/19 03:48: Chloride Level 110H, Carbon Dioxide Level 20L, Creatinine 0.53L, Calcium Level 6.9L, Phosphorus Level 2.2L, Magnesium Level 1.2L 04/29/19 10:00: Hemoglobin 8.0L, Hematocrit 23L 04/29/19 11:20: 04/29/19 12:00: 04/29/19 15:55: Hemoglobin 7.4L, Hematocrit 21L 04/30/19 00:00: Hemoglobin 7.6L, Hematocrit 22L 04/30/19 03:30: Hemoglobin 7.9L, Hematocrit 23L, Red Blood Count 2.68L, Red Cell Distribution Width 16.2H, Platelet Count 113L, Neutrophils (%) (Auto) 77H, Chloride Level 110H, Blood Urea Nitrogen 5L, Creatinine 0.52L, Calcium Level 7.7L, Magnesium Level 1.5L 04/30/19 18:03: Hemoglobin 8.1L, Hematocrit 23L 05/01/19 05:20: Hemoglobin 7.7L, Hematocrit 23L, Red Blood Count 2.58L, Red Cell Distribution Width 16.3H, Platelet Count 127L, Chloride Level 110H, Creatinine 0.54L, Calcium Level 8.0L Procedures None. Discharge Physical Examination Allergies: Coded Allergies: No Known Drug Allergies (Unverified , 04/28/19) Vitals & I&Os Vital Signs Date Time Temp Pulse Resp B/P (MAP) Pulse Ox O2 Delivery O2 Flow Rate FiO2 05/01/19 06:44 36.5 100 18 110/63 (79) 97 Room Air 04/29/19 19:00 2.00 04/29/19 06:11 25 General Appearance: Alert, Oriented X3, Cooperative, No Acute Distress HEENT: Atraumatic Respiratory: Clear to Auscultation Cardiovascular: No Murmurs, Other (Increased rate, at the time of my examinat ion 110/bpm) Abdominal: Normal Bowel Sounds, Other (Mild uterine fundal tenderness on palpation) Extremities: No Clubbing, No Cyanosis Skin: No Rashes Neuro: Normal Gait, Normal Speech Psych/Mental Status: Mental Status NL Discharge Home Medications Reviewed and agree with Discharge Medication list on patient's Discharge Instruction sheet Instructions to Patient/Family Please see electronic discharge instructions given to patient. Clinical Quality Measures DVT/VTE Risk/Contraindication: Risk Factor Score Per Nursin RFS Level Per Nursing on Admit: 1=Low/No VTE PPX TRUDY HARLEY DO May 01, 2019 07:39
[2019-05-01 08:40] VITALS: BP 117/69
[2019-05-01] MEDS: IBUPROFEN 800 MG (MOTRIN) TAB PO SCH (10:23)
[2019-05-01] MEDS: DOXYCYCLINE 100 MG (VIBRAMYCIN) TABLET PO SCH (10:23)
== END 2019-05-01 13:40 | disposition home or self-care (01) | DRG 768 ==
LOC: LDRP 12:23 → ICU 18:24 → LDRP 04-30 08:55
PROVIDERS: ADMIT Obstetrics & Gynecology; ATTEND Obstetrics & Gynecology
PROC: 10D07Z4 Extraction of Products of Conception, Mid Forceps, Via Natural or Artificial Opening (ICD-10-PCS; 2019-04-28)
PROC: 0W8NXZZ Division of Female Perineum, External Approach (ICD-10-PCS; 2019-04-28)
PROC: 02HV33Z Insertion of Infusion Device into Superior Vena Cava, Percutaneous Approach (ICD-10-PCS; 2019-04-28)
PROC: 0DQP0ZZ Repair Rectum, Open Approach (ICD-10-PCS; principal; 2019-04-28 16:55)
DX: O99.824 Streptococcus B carrier state complicating childbirth (principal); Z37.0 Single live birth; J96.00 Acute respiratory failure, unspecified whether with hypoxia or hypercapnia; D62 Acute posthemorrhagic anemia; O70.3 Fourth degree perineal laceration during delivery; O72.1 Other immediate postpartum hemorrhage; O99.52 Diseases of the respiratory system complicating childbirth; O99.284 Endocrine, nutritional and metabolic diseases complicating childbirth; E86.1 Hypovolemia; O34.523 Maternal care for prolapse of gravid uterus, third trimester; O71.2 Postpartum inversion of uterus; O90.81 Anemia of the puerperium; N81.4 Uterovaginal prolapse, unspecified; Z3A.49 Greater than 42 weeks gestation of pregnancy
CPT/HCPCS: 36415; 71045; 80048; 80053; 82805; 82962; 83735; 83880; 84100; 84478; 85007; 85014; 85018; 85025; 85027; 85384; 85610; 85730; 86850; 86900; 86901; 86920; 87081; 94002; 94003; 94640; 94664; 94760; 94799

== ENCOUNTER → 2020-06-13 | Outpatient (CLI) | payer SELFPAY ==
[~2020-06-13] MED LIST: ACET-93 PO; DOXY100T2 PO; IBUP-1780 PO; IRON1TAB97 PO; OXC5T PO; PREN1TAB79 PO
[2020-06-13 11:26] LABS: HEMOGLOBIN 11.1 G/DL (11.5-16.0); WHITE BLOOD COUNT 7.7 10^3/uL (4.3-11.0)
== END ==
LOC: LAB FS 10:46
PROVIDERS: ATTEND Family Medicine
DX: Z34.93 Encounter for supervision of normal pregnancy, unspecified, third trimester (principal); Z3A.00 Weeks of gestation of pregnancy not specified
CPT/HCPCS: 36415; 82950; 85027; 86703; 86762; 86780; 86850; 86900; 86901; 87088; 87340

== ENCOUNTER → 2020-06-20 | Outpatient (CLI) | payer SELFPAY ==
--- NOTE | 2020-06-20 12:41 | Diagnostic Imaging Report ---
INDICATION: Anatomic survey. TECHNIQUE: Multiple real-time grayscale images were obtained over the gravid uterus. COMPARISON: None FINDINGS: A single live intrauterine gestation is visualized in cephalic presentation. The placenta is posterior and not low-lying. BERNARDA measures 8.9 cm. Biometrical measurements are as follows: Biparietal 8.24 cm, age 33 weeks 1 days. Head circumference 29.52 cm, age 32 weeks 5 days. Abdominal circumference 25.75 cm, age 30 weeks 0 days. Femur length 5.51 cm, age 28 weeks 5 days. Sonographic estimate age: 31 weeks 1 days. Sonographic estimated date of delivery: 08/21/2020. Estimated Weight: 1491 gm (+/- 218 gm). LMP percentile: N/A%. heart rate: 129 beats per minute. number: 1 of 1. Cerebellum: Visualized Lateral ventricles: Not well seen Cavum septum pellucidum: Not well seen Nasal Bone: visualized Face: visualized Stomach: visualized Kidneys: visualized Bladder: visualized Three vessel cord: visualized Cord insertion: visualized 4 chamber heart: visualized outflow tracts: visualized Spine, upper: visualized Spine, lower: visualized Upper extremities: visualized Lower extremities: visualized Hands: Visualized, however not all fingers are well seen. Feet: Visualized, however not all toes are well seen. The bilateral adnexa have an unremarkable appearance without evidence of mass or free fluid. IMPRESSION: 1. Single live intrauterine gestation measuring 31 weeks 1 day with an estimated due date of 08/21/2020. 2. The lateral ventricles and cavum septum pellucidum are not well seen due to position. The remaining structures are visualized and have an unremarkable appearance. Recommend continued followup as indicated. Dictated by: Dictated on workstation # [id number]
== END ==
LOC: RAD FS 09:53
PROVIDERS: ATTEND Family Medicine
DX: Z34.93 Encounter for supervision of normal pregnancy, unspecified, third trimester (principal); Z3A.31 31 weeks gestation of pregnancy
CPT/HCPCS: 76805

== ENCOUNTER → 2020-08-15 | Outpatient (CLI) | payer OTHER ==
--- NOTE | 2020-08-15 12:52 | Diagnostic Imaging Report ---
INDICATION: Excessive growth. TECHNIQUE: Multiple real-time grayscale images were obtained over the gravid uterus. COMPARISON: 06/20/2020. FINDINGS: There is presence of a single viable intrauterine currently in a cephalic presentation. Normal amount of amniotic fluid, index at 9 cm. Posteriorly positioned placenta without previa. anatomic assessment not performed at this time. Maternal adnexa not visualized. Biometrical measurements are as follows: Biparietal 9.39 cm, age 38 weeks 2 days. Head circumference 34.30 cm, age 39 weeks 5 days. Abdominal circumference 34.92 cm, age 38 weeks 6 days. Femur length 7.07 cm, age 36 weeks 2 days. Sonographic estimate age: 38 weeks 2 days. Sonographic estimated date of delivery: 08/27/2020. Estimated Weight: 3443 gm (+/- 503 gm). LMP percentile: 48%. heart rate: 143 beats per minute. number: 1 of 1. IMPRESSION: 1. Single viable intrauterine currently in cephalic presentation. Sonographic estimated age 38 weeks 2 days for estimated date of delivery August 27, 2020. This is approximately 6 days delayed compared to initial ultrasound dating. There is asymmetry with the femur length measuring short and the remaining growth parameters may be accounting for some of this partial discrepancy. Dictated by: Dictated on workstation # [id number]
== END ==
LOC: RAD FS 10:45
PROVIDERS: ATTEND Obstetrics & Gynecology
DX: O36.63X1 Maternal care for excessive fetal growth, third trimester, fetus 1 (principal); Z3A.38 38 weeks gestation of pregnancy
CPT/HCPCS: 76805

== ENCOUNTER 2020-08-31 07:00 | Inpatient (IN) | payer OTHER ==
[2020-08-31] VITALS (51 sets, daily range): BP systolic 95–132; BP diastolic 52–75
[~2020-08-31] VITALS: Ht 182.9 cm; Wt 81.2 kg
[2020-08-31] MEDS ORDERED: OXYTOCIN PRE-MIX DRIP 500 ML IV SCH ×2 (08:00→17:45)
--- NOTE | 2020-08-31 08:08 | History & Physical-OB ---
OB - Chief Complaint & HPI Date/Time Date of Admission: Date of Admission: August 31, 2020 at 07:32 Date seen by a Provider: August 31, 2020 Time Seen by a Provider: 07:45 Chief Complaint/History OB-Reason for Admission/Chief: Induction of Labor Hx : 5 Hx Para: 2021 Gestational Age in Weeks: 39 Gestational Age in Days: 6 Indication for induction: post dates, other Other reason for admission: This is a at 39 6/7 weeks. Patient initiated care with Dr. Judge but has constuled with me for delivery due to previous high risk as well as Dr. Judge no longer delivering. has not been complicated. She has preiouvs history of macrosomia (11 lbs post date ), uterine inversion, post hemorrhage. Has had US at 38 weeks with EGA at 3444 grams (48%ile0 A+/- HbSAg - Rub NI Syphilis - GC/Ch - glucola low GBS - Alfie is peds Admission Nurse Assessment Rev: Yes History of Labs see above Other Per patient records she had uterine inversion and PPH after spontaneous labor. However, in reviewing the records from that day, she had pp hemorrhage with 8 units of blood, 2 ffp and 1 plts She had acute respiratory failure and was in the ICU for a day or two. She also had forceps delivery and 4th degree laceration, though no dystocia was described. Due to this history, she agreed to be induced and we will prepare for the possibility of the same occurring. Will have pitocin, TXA, cytotec and the PPH cart available. Allergies and Home Medications Allergies Coded Allergies: No Known Drug Allergies (Unverified , 04/28/19) Home Medications Acetaminophen 500 Mg Tablet, 1,000 MG PO Q8HR Prescribed by: STEPHANIE COKER on 09/01/2052 Ibuprofen 600 Mg Tablet, 600 MG PO Q6HR Prescribed by: STEPHANIE COKER on 09/01/2052 Vit No.124/Iron/FA 1 Each Tablet, 1 EACH PO DAILY, (Reported) Last Action: New Order Patient Home Medication List Home Medication List Reviewed: Yes OB - History Hx of Present Care: Yes (limited per choice) Ultrasounds: Normal mid trimester US Obstetrical Complications: None Medical Complications: None Other Concerns: history of uterine inversion previous baby 11 lbs 10 ounces history of PPH Information Induced Hypertension: No Maternal Gestational Diabetes: No Hemorrhage: Yes (last ) Obstetrical History Hx : 5 Hx Para: 2 Hx # Term Pregnancies: 2 Hx # Pregnancies: 0 Number of Living Children: 2 Hx Termination: No Hx Total # of Abortions (Spona: 2 Hx Multiple Gestation: No Hx Ectopic : No Hx Stillbirth: No Hx Complication: Yes (uterine inversion) Hx Induced Hypertens: No Hx Maternal Gestational Diabet: No Hx Hemorrhage: Yes Delivery History Hx Dystocia: No Hx Forceps Assisted Delivery: No Hx Vacuum Extraction Assisted: No Hx Placenta Abnormality: No Hx Distress: No Hx Large For Gestational Age I: Yes (11 lbs 10 ounces) Hx Small for Gestational Age I: No Hx Section: No Hx Vaginal Delivery Post C-Sec: No Hx Blood Disorders: No Adverse Rxn to Tranfusion: No Patient Past Medical History NC Social History/Family History Alcohol Use: Denies Use Recreational Drug Use: No Smoking Cessation: Never smoker 2nd Hand Smoke Exposure: No OB - Admission Exam Physical Exam Abdomen: Gravid Extremities: Normal Reflexes: Normal Cervical Dilatation: 2cm Effacement: 50% Station: -3 Membranes: Intact Heart Rate: 140's Accelerations: Accelerations Present Decelerations: No Decelerations Short Term Variability: Present Scrap Drop Crane Operator Variability: Average (6-25) Contractions on Admission: 6-10 Minutes Apart OB - Assessment/Plan/Diagnosis Assessment Admission Dx induction at term previous history of uterine inversion previous history of PPH previous macrosomic (11.bs 10 ounces) Admission Status: Inpatient Order (span 2 midnights) (induction) Reason for Inpatient Admission: labor induction STEPHANIE COKER DO August 31, 2020 08:08
[2020-08-31] MEDS: D5 LR IV SOLUTION 1,000 ML IV SCH ×2 (08:11→16:04)
[2020-08-31 08:28] LABS: BILIRUBIN,URINE NEGATIVE (NEGATIVE); CLARITY,URINE CLEAR; COLOR,URINE YELLOW; GLUCOSE, URINE (UA) NEGATIVE (NEGATIVE); KETONES,URINE NEGATIVE (NEGATIVE); LEUKOCYTE ESTERASE ,URINE NEGATIVE (NEGATIVE); NITRITE,URINE NEGATIVE (NEGATIVE); PROTEIN,URINE NEGATIVE (NEGATIVE)
[2020-08-31 08:32] LABS: BASOPHILS % (AUTO) 0 % (0-10); EOSINOPHILS # (AUTO) 0.1 10^3/uL (0.0-0.3); EOSINOPHILS % (AUTO) 1 % (0-10); HEMATOCRIT 34 % (35-52); HEMOGLOBIN 11.7 g/dL (11.5-16.0); LYMPHOCYTES # (AUTO) 1.2 10^3/uL (1.0-4.0); LYMPHOCYTES % (AUTO) 18 % (12-44); MEAN CORPUSCULAR HEMOGLOBIN 31 pg (25-34); MEAN CORPUSCULAR HGB CONC 34 g/dL (32-36); MEAN CORPUSCULAR VOLUME 91 fL (80-99); MONOCYTES # (AUTO) 0.6 10^3/uL (0.0-1.0); MONOCYTES % (AUTO) 9 % (0-12); NEUTROPHILS # (AUTO) 4.7 10^3/uL (1.8-7.8); NEUTROPHILS % (AUTO) 70 % (42-75); PLATELET COUNT 184 10^3/uL (130-400); WHITE BLOOD COUNT 6.7 10^3/uL (4.3-11.0)
[2020-08-31 08:37] LABS: BACTERIA,URINE NEGATIVE /HPF; WBC,URINE 0-2 /HPF
[2020-08-31] MEDS ORDERED: NS IV 500 ML 500 ML IV SCH (08:45)
[2020-08-31] MEDS ORDERED: TRANEXAMIC ACID INJECTION 1,000 MG in NS (IVPB) 100 ML IV ONE (08:45)
[2020-08-31] MEDS ORDERED: fentaNYL INJ 100 MCG/2 ML AMP ONE (12:02)
[2020-08-31] MEDS ORDERED: BUPIVACAINE 0.25% 30 ML (SENSORCAINE) VIAL ONE (12:02)
[2020-08-31] MEDS ORDERED: fentaNYL 2 mcg/ml BUPIVA 0.125 100 ML ONE (12:04)
[2020-08-31] MEDS ORDERED: NALOXONE 0.4 MG/ML 1 ML (NARCAN) VIAL IV PRN ×2 (12:45)
[2020-08-31] MEDS ORDERED: ONDANSETRON 4 MG/2 ML (SDV) Z0FRAN IV PRN (12:45)
[2020-08-31] MEDS ORDERED: EPIDURAL (fentaNYL 2 MCG/ML BUPIVA 0.125%)100 ML BAG EPI PRN (12:45)
[2020-08-31] MEDS ORDERED: METOCLOPRAMIDE INJ 10 MG/2 ML (REGLAN) IV PRN (12:45)
[2020-08-31] MEDS ORDERED: LACTATED RINGERS 1,000 ML IV SCH (12:45)
[2020-08-31] MEDS ORDERED: diphenhydrAMINE 50 MG/ML INJ (BENADRYL) IV PRN (12:45)
[2020-08-31] MEDS ORDERED: CATHETER FLUSH 10 ML SYR IV SCH ×2 (14:00→22:00)
[2020-08-31] MEDS ORDERED: LIDOCAINE/EPI 2% 1:200,00 (XYLOCAINE) 20 ML VIAL ONE (16:27)
[2020-08-31] MEDS ORDERED: MINERAL OIL CONCENTRATE 99.9% 15 ML UDC ONE (16:27)
--- NOTE | 2020-08-31 17:27 | OB Labor & Delivery Record ---
Vag Delivery Note Vag Delivery Note Date of Delivery: 08/31/20 Preoperative Diagnosis: Anayeli Montero is a 24 /Para 5 / 2, Gestational Age 39 6/7 weeks. Postoperative Diagnosis: Same Surgeon: STEPHANIE COKER Anesthesia: spinal Delivery Type: vaginal Findings: Viable male , apgars pending, weight 8#9 ounces Lacerations: second degree Intact placenta with 3 vessel cord. No nuchal cord, body cord or shoulder dystocia. TXA given at cord clamp to prevent post hemorrhage. Cytotec 800 mcg placed for hemorrhage prophylaxis Estimated Blood Loss: 300 ml Complications: None Condition: Stable Description of Procedure: The patient is a 24 year old female who presented for induction of labor at full term due to the previous history of uterine inversion and post hemorrhage. She was admitted and informed consent was obtained. Her labor course was remarkable for AROM, oxytocin, and epidural. She progressed to complete dilatation and began to push. She was then set up for delivery. The 's head was delivered atraumatically in the KAREN position. The shoulders and remainder of the 's body were then delivered without difficulty. Upon delivery, the head was held below the level of the perineum and the mouth and nares were bulb suctioned. The cord was doubly clamped and cut and the was handed off to the pediatric staff. Due to the pervious uterine inversion, I examined the placenta with an internal exam. It was found to be detaching from the uterus, but I could feel the uterus inverting. I thus guided the placenta out with my hand and kept the uterus from inverting. An intact placenta with 3-vessel cord delivered via [facility] and there was found to be minimal bleeding.~ Vigorous fundal massage was performed and the fundus was found to be firm. IV oxytocin was given. Examination of the vagina and perineum revealed a 2nd laceration repaired in the usual fashion with 3-0 vicryl suture. Initially I thought she had a higher tear, but after delivery, when I did a vaginal exam, the vaginal tissue is intact, but there is a separation in the muscles underneath this likely due to the previous forceps delivery and 4 th degree episiotomy (not tear). Following the repair, sponge, instrument and needle counts were correct. Mom and baby were both in stable condition in the labor suite. Vitals - Labs Vital Signs - I&O Vital Signs Date Time Temp Pulse Resp B/P (MAP) Pulse Ox O2 Delivery O2 Flow Rate FiO2 08/31/20 14:15 68 18 120/64 (82) 99 Room Air 08/31/20 14:00 68 18 113/67 (82) 100 Room Air 08/31/20 13:45 65 18 112/63 (79) 100 Room Air 08/31/20 13:30 65 18 106/61 (76) 100 Room Air 08/31/20 13:15 66 18 111/63 (79) 100 Room Air 08/31/20 13:00 71 18 109/57 (74) 99 Room Air 08/31/20 12:55 74 18 107/59 (75) 97 Room Air 08/31/20 12:50 81 18 111/59 (76) 97 Room Air 08/31/20 12:45 68 18 113/58 (76) 98 Room Air 08/31/20 12:40 87 18 111/65 (80) 97 Room Air 08/31/20 12:35 86 18 107/58 (74) 98 Room Air 08/31/20 12:30 68 18 113/58 (76) 98 Room Air 08/31/20 12:25 76 18 115/69 (84) 98 Room Air 08/31/20 12:15 71 18 108/63 (78) 97 Room Air 08/31/20 12:00 67 18 120/72 (88) Room Air 08/31/20 11:45 77 18 117/74 (88) Room Air 08/31/20 11:30 36.5 67 18 95/52 (66) Room Air 08/31/20 11:15 64 18 96/55 (69) Room Air 08/31/20 11:00 68 18 116/71 (86) Room Air 08/31/20 10:45 67 18 115/69 (84) Room Air 08/31/20 10:30 69 18 112/67 (82) Room Air 08/31/20 10:15 68 18 110/67 (81) Room Air 08/31/20 10:00 71 18 115/72 (86) Room Air 08/31/20 09:45 69 18 112/70 (84) Room Air 08/31/20 09:30 69 18 112/70 (84) Room Air 08/31/20 09:15 72 18 104/61 (75) Room Air 08/31/20 09:00 73 18 110/60 (77) Room Air 08/31/20 08:45 73 18 109/64 (79) Room Air 08/31/20 08:30 73 18 107/57 (74) Room Air 08/31/20 08:15 68 18 106/58 (74) Room Air 08/31/20 07:55 36.5 68 18 108/59 (75) 97 Room Air 08/31/20 07:54 36.5 68 18 97 Room Air Labs Laboratory Tests 08/31/20 08:00: White Blood Count 6.7, Red Blood Count 3.79L, Hemoglobin 11.7, Hematocrit 34L, Mean Corpuscular Volume 91, Mean Corpuscular Hemoglobin 31, Mean Corpuscular Hemoglobin Concent 34, Red Cell Distribution Width 13.1, Platelet Count 184, Mean Platelet Volume 9.0, Immature Granulocyte % (Auto) 1, Neutrophils (%) (Auto) 70, Lymphocytes (%) (Auto) 18, Monocytes (%) (Auto) 9, Eosinophils (%) (Auto) 1, Basophils (%) (Auto) 0, Neutrophils # (Auto) 4.7, Lymphocytes # (Auto) 1.2, Monocytes # (Auto) 0.6, Eosinophils # (Auto) 0.1, Basophils # (Auto) 0.0, Immature Granulocyte # (Auto) 0.0, Urine Color YELLOW, Urine Clarity CLEAR, Urine pH 7.0, Urine Specific Neely 1.020, Urine Protein NEGATIVE, Urine Glucose (UA) NEGATIVE, Urine Ketones NEGATIVE, Urine Nitrite NEGATIVE, Urine Bilirubin NEGATIVE, Urine Urobilinogen 1.0, Urine Leukocyte Esterase NEGATIVE, Urine RBC (Auto) NEGATIVE, Urine RBC NONE, Urine WBC 0-2, Urine Squamous Epithelial Cells 5-10, Urine Crystals NONE, Urine Bacteria NEGATIVE, Urine Casts NONE, Urine Mucus NEGATIVE, Urine Culture Indicated NO STEPHANIE COKER DO August 31, 2020 17:27
[2020-08-31] MEDS ORDERED: BENZOCAINE/MENTHOL (DERMOPLAST) 56 ML CAN TP PRN (17:45)
[2020-08-31] MEDS ORDERED: WITCH HAZEL(TUCKS) 40 EA JAR TOP PRN (17:45)
[2020-08-31] MEDS ORDERED: MEASLES,MUMPS,RUBELLA 1 EA INJ SQ ONE (17:45)
[2020-08-31] MEDS ORDERED: DIBUCAINE 1% OINTMENT 30 GM TUBE TOP PRN (17:45)
[2020-08-31] MEDS ORDERED: TETANUS,DIPTH,PERTUSS P/F (BOOSTRIX) 0.5 ML VIAL IM ONE (17:45)
[2020-08-31] MEDS: IBUPROFEN 600 MG (MOTRIN) TAB PO SCH ×2 (18:41→23:48)
[2020-08-31] MEDS: DOCUSATE SODIUM 100 MG (COLACE) CAP PO SCH (23:47)
[2020-08-31] MEDS: ACETAMINOPHEN 500 MG TAB (TYLENOL) PO SCH (23:48)
[2020-09-01] MEDS ORDERED: PREN-142 PO (02:17)
[2020-09-01 04:20] VITALS: BP 100/51
[2020-09-01] MEDS: IBUPROFEN 600 MG (MOTRIN) TAB PO SCH ×2 (05:56→12:00)
[2020-09-01 05:59] LABS: BASOPHILS % (AUTO) 0 % (0-10); EOSINOPHILS % (AUTO) 0 % (0-10); HEMATOCRIT 32 % (35-52); HEMOGLOBIN 10.7 g/dL (11.5-16.0); LYMPHOCYTES # (AUTO) 1.6 10^3/uL (1.0-4.0); LYMPHOCYTES % (AUTO) 16 % (12-44); MEAN CORPUSCULAR HEMOGLOBIN 31 pg (25-34); MEAN CORPUSCULAR HGB CONC 34 g/dL (32-36); MEAN CORPUSCULAR VOLUME 92 fL (80-99); MEAN PLATELET VOLUME 9.1 fL (9.0-12.2); MONOCYTES # (AUTO) 0.9 10^3/uL (0.0-1.0); MONOCYTES % (AUTO) 8 % (0-12); NEUTROPHILS # (AUTO) 7.6 10^3/uL (1.8-7.8); NEUTROPHILS % (AUTO) 75 % (42-75); PLATELET COUNT 168 10^3/uL (130-400); WHITE BLOOD COUNT 10.1 10^3/uL (4.3-11.0)
[2020-09-01] MEDS ORDERED: PRENATAL VITAMIN 1 EA TAB PO SCH (07:00)
--- NOTE | 2020-09-01 07:12 | Anesthesia-Regional Post-Op ---
Regional Patient Condition Mental Status: Alert, Oriented x3 Circulation: Same as Pre-Op Headache: Absent Sensation: Full Recovery Motor Block: Absent Post Op Complications Complications None Follow Up Care/Instructions Patient Instructions None needed. Anesthesia/Patient Condition Patient is doing well, no complaints, stable vital signs, no apparent adverse anesthesia problems. No complications reported per nursing. JOEY SCHWARZ CRNA September 01, 2020 07:12
[2020-09-01] MEDS ORDERED: FERROUS SULF 325 MG (IRON) TAB PO SCH (08:00)
--- NOTE | 2020-09-01 08:50 | Postpartum Progress Note ---
Note Note Day # 1 s/p No hemorrhage, no uterine inversion, 2nd degree laceration Received 30 U pitocin, 800 mcg misoprostol, 1 g TXA at delivery Subjective: Patient is without complaints. Ambulating, voiding. Tolerating a regular diet without nausea or vomiting. Normal lochia. Pain is well controlled with oral pain medications. breast feeding. Objective: 08/31/20 09/01/20 23:48 04:20 Temp 36.7 36.6 Pulse 60 72 Resp 18 18 B/P (MAP) 109/56 (73) 100/51 (67) Pulse Ox 98 98 O2 Delivery Room Air Room Air 09/01/20 00:00 Intake Total 1610 ml Balance 1610 ml Laboratory Tests Test 09/01/20 05:20 Range/Units White Blood Count 10.1 4.3-11.0 10^3/uL Red Blood Count 3.46 L 3.80-5.11 10^6/uL Hemoglobin 10.7 L 11.5-16.0 g/dL Hematocrit 32 L 35-52 % Mean Corpuscular Volume 92 80-99 fL Mean Corpuscular Hemoglobin 31 25-34 pg Mean Corpuscular Hemoglobin Concent 34 32-36 g/dL Red Cell Distribution Width 13.2 10.0-14.5 % Platelet Count 168 130-400 10^3/uL Mean Platelet Volume 9.1 9.0-12.2 fL Immature Granulocyte % (Auto) 1 % Neutrophils (%) (Auto) 75 42-75 % Lymphocytes (%) (Auto) 16 12-44 % Monocytes (%) (Auto) 8 0-12 % Eosinophils (%) (Auto) 0 0-10 % Basophils (%) (Auto) 0 0-10 % Neutrophils # (Auto) 7.6 1.8-7.8 10^3/uL Lymphocytes # (Auto) 1.6 1.0-4.0 10^3/uL Monocytes # (Auto) 0.9 0.0-1.0 10^3/uL Eosinophils # (Auto) 0.0 0.0-0.3 10^3/uL Basophils # (Auto) 0.0 0.0-0.1 10^3/uL Immature Granulocyte # (Auto) 0.1 0.0-0.1 10^3/uL Physical Exam: General - Alert and oriented, no apparent distress Abdomen - Soft, appropriately tender to palpation, non-distended, fundus firm at umbilicus Extremities - no edema, negative Susana's bilaterally Assessment: 1. post- day # 1, status post spontaneous vaginal delivery. Recovering well, hemodynamically stable Plan: Routine care. Encourage breast feeding. Encourage ambulation. Ferrous sulfate supplementation. Plan for discharge Vitals - Labs Vital Signs - I&O Vital Signs Date Time Temp Pulse Resp B/P (MAP) Pulse Ox O2 Delivery O2 Flow Rate FiO2 09/01/20 04:20 36.6 72 18 100/51 (67) 98 Room Air 08/31/20 23:48 36.7 60 18 109/56 (73) 98 Room Air 08/31/20 20:18 36.8 85 18 123/57 (79) 98 Room Air 08/31/20 18:50 92 18 113/66 (82) Room Air 08/31/20 18:40 37.0 99 18 108/65 (79) Room Air 08/31/20 18:20 78 18 119/67 (84) Room Air 08/31/20 18:10 67 18 109/60 (76) Room Air 08/31/20 17:55 87 18 117/74 (88) Room Air 08/31/20 17:40 81 18 120/70 (87) Room Air 08/31/20 17:25 89 18 114/69 (84) Room Air 08/31/20 17:05 111 18 109/61 (77) Room Air 08/31/20 16:45 121 18 113/65 (81) Room Air 08/31/20 16:40 37.3 08/31/20 16:30 100 18 120/75 (90) Room Air 08/31/20 16:15 95 18 115/69 (84) 98 Room Air 08/31/20 16:00 78 18 123/72 (89) 99 Room Air 08/31/20 15:45 85 18 119/69 (86) 100 Room Air 08/31/20 15:30 96 18 132/72 (92) 99 Room Air 08/31/20 15:15 82 18 120/67 (84) 100 Room Air 08/31/20 15:00 89 18 114/67 (83) 100 Room Air 08/31/20 14:45 70 18 120/68 (85) 99 Room Air 08/31/20 14:30 69 18 99 Room Air 08/31/20 14:15 68 18 120/64 (82) 99 Room Air 08/31/20 14:00 68 18 113/67 (82) 100 Room Air 08/31/20 13:45 65 18 112/63 (79) 100 Room Air 08/31/20 13:30 65 18 106/61 (76) 100 Room Air 08/31/20 13:15 66 18 111/63 (79) 100 Room Air 08/31/20 13:00 71 18 109/57 (74) 99 Room Air 08/31/20 12:55 74 18 107/59 (75) 97 Room Air 08/31/20 12:50 81 18 111/59 (76) 97 Room Air 08/31/20 12:45 68 18 113/58 (76) 98 Room Air 08/31/20 12:40 87 18 111/65 (80) 97 Room Air 08/31/20 12:35 86 18 107/58 (74) 98 Room Air 08/31/20 12:30 68 18 113/58 (76) 98 Room Air 08/31/20 12:25 76 18 115/69 (84) 98 Room Air 08/31/20 12:15 71 18 108/63 (78) 97 Room Air 08/31/20 12:00 67 18 120/72 (88) Room Air 08/31/20 11:45 77 18 117/74 (88) Room Air 08/31/20 11:30 36.5 67 18 95/52 (66) Room Air 08/31/20 11:15 64 18 96/55 (69) Room Air 08/31/20 11:00 68 18 116/71 (86) Room Air 08/31/20 10:45 67 18 115/69 (84) Room Air 08/31/20 10:30 69 18 112/67 (82) Room Air 08/31/20 10:15 68 18 110/67 (81) Room Air 08/31/20 10:00 71 18 115/72 (86) Room Air 08/31/20 09:45 69 18 112/70 (84) Room Air 08/31/20 09:30 69 18 112/70 (84) Room Air 08/31/20 09:15 72 18 104/61 (75) Room Air 08/31/20 09:00 73 18 110/60 (77) Room Air I & O 09/01/20 07:00 Intake Total 1610 ml Balance 1610 ml Labs Laboratory Tests 09/01/20 05:20: White Blood Count 10.1, Red Blood Count 3.46L, Hemoglobin 10.7L, Hematocrit 32L, Mean Corpuscular Volume 92, Mean Corpuscular Hemoglobin 31, Mean Corpuscular Hemoglobin Concent 34, Red Cell Distribution Width 13.2, Platelet Count 168, Mean Platelet Volume 9.1, Immature Granulocyte % (Auto) 1, Neutrophils (%) (Auto) 75, Lymphocytes (%) (Auto) 16, Monocytes (%) (Auto) 8, Eosinophils (%) (Auto) 0, Basophils (%) (Auto) 0, Neutrophils # (Auto) 7.6, Lymphocytes # (Auto) 1.6, Monocytes # (Auto) 0.9, Eosinophils # (Auto) 0.0, Basophils # (Auto) 0.0, Immature Granulocyte # (Auto) 0.1 STEPHANIE COKER DO September 01, 2020 08:50
[2020-09-01] MEDS ORDERED: ACET-93 PO (08:52)
[2020-09-01] MEDS ORDERED: IBUP-844 PO (08:52)
--- NOTE | 2020-09-01 08:53 | Discharge Inst-Women's Service ---
Discharge Inst-Women's Serv Depart Medication/Instructions New, Converted or Re-Newed RX: RX on Chart Instructions call for vaginal bleeding if soaking greater than 1 pad per hour x two hours Final Diagnosis vaginal delivery 39 6/7 weeks history of uterine inversion history of post hemorrhage history of 4th degree laceration 2nd degree laceration Problems Reviewed?: Yes Consults/Follow Up Additional Follow Up: Yes ([address] Judge) Activity Activity: Activity as Tolerated NO SMOKING: NO SMOKING Nothing Inside Vagina: No Douching, No [place], No Tampons Diet Discharge Diet: No Restrictions Symptoms to Report to : Swelling Increased, Bleeding Excessive, Pain Increased, Fever Over 101 Degrees F, Vaginal Bleeding Increase, Cramps in Feet or Legs, Vaginal Discharge Foul For Any Problems or Questions: Contact Your Physician STEPHANIE COKER DO September 01, 2020 08:53
[2020-09-01] MEDS: DOCUSATE SODIUM 100 MG (COLACE) CAP PO SCH (09:07)
[2020-09-01 09:14] VITALS: BP 110/58
[2020-09-01 13:30] VITALS: BP 112/53
[2020-09-01] MEDS: ACETAMINOPHEN 500 MG TAB (TYLENOL) PO SCH ×2 (14:00→17:34)
== END 2020-09-01 18:55 | disposition home or self-care (01) | DRG 807 ==
LOC: LDRP 07:32
PROVIDERS: ADMIT Obstetrics & Gynecology; ATTEND Obstetrics & Gynecology
PROC: 10E0XZZ Delivery of Products of Conception, External Approach (ICD-10-PCS; principal; 2020-08-31)
PROC: 0KQM0ZZ Repair Perineum Muscle, Open Approach (ICD-10-PCS; 2020-08-31)
PROC: 10907ZC Drainage of Amniotic Fluid, Therapeutic from Products of Conception, Via Natural or Artificial Opening (ICD-10-PCS; 2020-08-31)
DX: O70.1 Second degree perineal laceration during delivery (principal); Z37.0 Single live birth; Z3A.39 39 weeks gestation of pregnancy
CPT/HCPCS: 36415; 81000; 85025; 86850; 86900; 86901; 86920

== ENCOUNTER 2022-03-19 05:00 | Inpatient (IN) | payer OTHER ==
[2022-03-19] VITALS (34 sets, daily range): BP systolic 97–196; BP diastolic 53–79
[~2022-03-19] VITALS: Ht 182.9 cm; Wt 79.6 kg
[~2022-03-19 05:00] MED LIST changes: +IBUP-844 PO; +PREN-142 PO
[2022-03-19] MEDS ORDERED: D5 LR IV SOLUTION 1,000 ML IV SCH (06:00)
[2022-03-19] MEDS ORDERED: CATHETER FLUSH 10 ML SYR IV SCH ×2 (06:00→14:00)
[2022-03-19] MEDS ORDERED: MINERAL OIL 30 ML UDC TOP PRN (06:00)
[2022-03-19 06:07] LABS: BILIRUBIN,URINE NEGATIVE (NEGATIVE); CLARITY,URINE CLEAR; COLOR,URINE YELLOW; GLUCOSE, URINE (UA) NEGATIVE (NEGATIVE); KETONES,URINE NEGATIVE (NEGATIVE); LEUKOCYTE ESTERASE ,URINE NEGATIVE (NEGATIVE); NITRITE,URINE NEGATIVE (NEGATIVE); PROTEIN,URINE NEGATIVE (NEGATIVE)
[2022-03-19 06:16] LABS: BASOPHILS % (AUTO) 0 % (0-10); EOSINOPHILS # (AUTO) 0.1 10^3/uL (0.0-0.3); EOSINOPHILS % (AUTO) 1 % (0-10); HEMATOCRIT 34 % (35-52); HEMOGLOBIN 11.6 g/dL (11.5-16.0); LYMPHOCYTES # (AUTO) 1.5 10^3/uL (1.0-4.0); LYMPHOCYTES % (AUTO) 16 % (12-44); MEAN CORPUSCULAR HEMOGLOBIN 30 pg (25-34); MEAN CORPUSCULAR HGB CONC 34 g/dL (32-36); MEAN CORPUSCULAR VOLUME 89 fL (80-99); MONOCYTES # (AUTO) 0.9 10^3/uL (0.0-1.0); MONOCYTES % (AUTO) 9 % (0-12); NEUTROPHILS # (AUTO) 6.9 10^3/uL (1.8-7.8); NEUTROPHILS % (AUTO) 73 % (42-75); PLATELET COUNT 193 10^3/uL (130-400); WHITE BLOOD COUNT 9.4 10^3/uL (4.3-11.0)
[2022-03-19 06:18] LABS: AMORPHOUS SEDIMENT,UR RARE AMOR URATES /LPF; BACTERIA,URINE NEGATIVE /HPF; RBC,URINE RARE /HPF; SQUAMOUS EPITHELIAL CELL,UR 0-2 /HPF; WBC,URINE 0-2 /HPF
[2022-03-19] MEDS ORDERED: LIDOCAINE 1% INJ 20 ML VIAL ONE (08:12)
[2022-03-19] MEDS ORDERED: OXYTOCIN PRE-MIX DRIP 500 ML IV ONE (08:12)
--- NOTE | 2022-03-19 08:39 | History & Physical-OB ---
OB - Chief Complaint & HPI Date/Time Date of Admission: Date of Admission: Mar 19, 2022 at 05:58 Date seen by a Provider: Mar 19, 2022 Time Seen by a Provider: 08:35 Chief Complaint/History OB-Reason for Admission/Chief: Onset of Labor Hx : 6 Hx Para: 3 Expected Date of Delivery: Mar 15, 2022 Gestational Age in Weeks: 40 Gestational Age in Days: 4 History of Labs A+, Ab neg, Rub NON IMMUNE HIV/RPR/HepB/C NR GC/chyl neg Normal 1 hr GTT GBS neg Allergies and Home Medications Allergies Coded Allergies: No Known Drug Allergies (Unverified , 04/28/19) Patient Home Medication List Home Medication List Reviewed: Yes Acetaminophen (Acetaminophen) 500 Mg Tablet, 1,000 MG PO Q8HR Prescribed by: STEPHANIE COKER on 09/01/20851 Ibuprofen (Ibu) 600 Mg Tablet, 600 MG PO Q6HR Prescribed by: STEPHANIE COKER on 09/01/20851 Vit No.124/Iron/FA ( Vitamin Tablet) 1 Each Tablet, 1 EACH PO DAILY, (Reported) Entered as Reported by: SAMMIE SHIELDS on 09/01/20 0217 OB - History Hx of Present Care: Yes (Late to care, establised at 31 weeks) Obstetrical Complications: None Medical Complications: None Obstetrical History Hx : 6 Hx Para: 3 Hx # Term Pregnancies: 3 Number of Living Children: 3 Hx Termination: No Hx Total # of Abortions (Spona: 2 Hx Multiple Gestation: No Hx Stillbirth: No Hx Complication: Yes (uterine inversion) Hx Induced Hypertens: No Hx Maternal Gestational Diabet: No Delivery History Hx Dystocia: No Hx Large For Gestational Age I: Yes (11 lbs 10 ounces) Hx Small for Gestational Age I: No Hx Section: No Hx Vaginal Delivery Post C-Sec: No Hx Blood Disorders: No Adverse Rxn to Tranfusion: No Patient Past Medical History h/o Uterine Prolapse following Vag delivery 2020 Social History/Family History Alcohol Use: Denies Use Recreational Drug Use: No Smoking Cessation: Never smoker 2nd Hand Smoke Exposure: No Immunizations Influenza Vaccine Up-to-Date: No; Not Current Hepatitis A: No Hepatitis B: No Rubella: not immune RPR/VDRL: Negative GBS Status: Negative HBsAG: Negative OB - Admission Exam Physical Exam Vitals: Vital Signs 03/19/22 03/19/22 06:16 07:10 Temp 36.7 Pulse 82 Resp 16 B/P (MAP) 117/68 (84) Pulse Ox 98 O2 Delivery Room Air HEENT: NCAT Heart: Rhythm Normal Lungs: Clear Abdomen: Gravid Cervical Dilatation: 5cm Effacement: 100% Station: 0 Membranes: Intact Heart Rate: 130's Decelerations: No Decelerations Contractions on Admission: < 5 Minutes Apart Intensity: Moderate Labs Laboratory Tests Test 03/19/22 05:00 03/19/22 06:00 Range/Units Urine Color YELLOW Urine Clarity CLEAR Urine pH 7.0 5-9 Urine Specific [place] 1.020 1.016-1.022 Urine Protein NEGATIVE NEGATIVE Urine Glucose (UA) NEGATIVE NEGATIVE Urine Ketones NEGATIVE NEGATIVE Urine Nitrite NEGATIVE NEGATIVE Urine Bilirubin NEGATIVE NEGATIVE Urine Urobilinogen 0.2 < = 1.0 MG/DL Urine Leukocyte Esterase NEGATIVE NEGATIVE Urine RBC (Auto) NEGATIVE NEGATIVE Urine RBC RARE /HPF Urine WBC 0-2 /HPF Urine Squamous Epithelial Cells 0-2 /HPF Urine Crystals PRESENT H /LPF Urine Amorphous Sediment RARE REED URATES H /LPF Urine Bacteria NEGATIVE /HPF Urine Casts NONE /LPF Urine Mucus NEGATIVE /LPF Urine Culture Indicated NO White Blood Count 9.4 4.3-11.0 10^3/uL Red Blood Count 3.81 3.80-5.11 10^6/uL Hemoglobin 11.6 11.5-16.0 g/dL Hematocrit 34 L 35-52 % Mean Corpuscular Volume 89 80-99 fL Mean Corpuscular Hemoglobin 30 25-34 pg Mean Corpuscular Hemoglobin Concent 34 32-36 g/dL Red Cell Distribution Width 12.9 10.0-14.5 % Platelet Count 193 130-400 10^3/uL Mean Platelet Volume 9.0 9.0-12.2 fL Immature Granulocyte % (Auto) 1 % Neutrophils (%) (Auto) 73 42-75 % Lymphocytes (%) (Auto) 16 12-44 % Monocytes (%) (Auto) 9 0-12 % Eosinophils (%) (Auto) 1 0-10 % Basophils (%) (Auto) 0 0-10 % Neutrophils # (Auto) 6.9 1.8-7.8 10^3/uL Lymphocytes # (Auto) 1.5 1.0-4.0 10^3/uL Monocytes # (Auto) 0.9 0.0-1.0 10^3/uL Eosinophils # (Auto) 0.1 0.0-0.3 10^3/uL Basophils # (Auto) 0.0 0.0-0.1 10^3/uL Immature Granulocyte # (Auto) 0.1 0.0-0.1 10^3/uL OB - Assessment/Plan/Diagnosis Assessment Assessment: active labor Admission Dx Third Trimester 40 week gestation Admission Status: Inpatient Order (span 2 midnights) Reason for Inpatient Admission: Labor and delivery Plan Other Plan 26 yo @ 40.4 wga here for active labor Plan - Expectant management - Unsure about epidural at this time - GBS neg - H/o uterine prolapse, OB mobile home set up person has been notified QING KHAN MD Mar 19, 2022 08:39
[2022-03-19] MEDS ORDERED: fentaNYL 2 mcg/ml BUPIVA 0.125 100 ML ONE (10:10)
[2022-03-19] MEDS ORDERED: fentaNYL INJ 100 MCG/2 ML AMP ONE (10:17)
[2022-03-19] MEDS ORDERED: BUPIVACAINE 0.25% 30 ML (SENSORCAINE) VIAL ONE (10:17)
--- NOTE | 2022-03-19 11:08 | Labor Progress Note ---
Labor Progress Note Labor Progress Note Date Seen by Provider: Mar 19, 2022 Time Seen by Provider: 11:07 Subjective: Pt denies complaints. Epidural in place. Objective: / Assessment/Plan: Anayeli Montero is a (26 /Para 6 / 3,Gestational Age (wks)40.4 here in active labor CEFM/TOCO Anesthesia: Epidural Anticipate vaginal delivery, expectant management AROM Clear 1100 Vitals - Labs Vital Signs - I&O Vital Signs Date Time Temp Pulse Resp B/P (MAP) Pulse Ox O2 Delivery O2 Flow Rate FiO2 03/19/22 07:10 82 16 117/68 (84) 98 Room Air 03/19/22 06:40 71 16 117/67 (84) 97 Room Air 03/19/22 06:16 36.7 03/19/22 06:10 83 16 114/63 (80) Room Air 03/19/22 06:00 36.6 78 16 98 Room Air 03/19/22 05:40 73 16 110/63 (79) Room Air Labs Laboratory Tests 03/19/22 05:00: Urine Color YELLOW, Urine Clarity CLEAR, Urine pH 7.0, Urine Specific [place] 1.020, Urine Protein NEGATIVE, Urine Glucose (UA) NEGATIVE, Urine Ketones NEGATIVE, Urine Nitrite NEGATIVE, Urine Bilirubin NEGATIVE, Urine Urobilinogen 0.2, Urine Leukocyte Esterase NEGATIVE, Urine RBC (Auto) NEGATIVE, Urine RBC RARE, Urine WBC 0-2, Urine Squamous Epithelial Cells 0-2, Urine Crystals PRESENTH, Urine Amorphous Sediment RARE REED URATESH, Urine Bacteria NEGATIVE, Urine Casts NONE, Urine Mucus NEGATIVE, Urine Culture Indicated NO 03/19/22 06:00: White Blood Count 9.4, Red Blood Count 3.81, Hemoglobin 11.6, Hematocrit 34L, Mean Corpuscular Volume 89, Mean Corpuscular Hemoglobin 30, Mean Corpuscular Hemoglobin Concent 34, Red Cell Distribution Width 12.9, Platelet Count 193, Mean Platelet Volume 9.0, Immature Granulocyte % (Auto) 1, Neutrophils (%) (Auto) 73, Lymphocytes (%) (Auto) 16, Monocytes (%) (Auto) 9, Eosinophils (%) (Auto) 1, Basophils (%) (Auto) 0, Neutrophils # (Auto) 6.9, Lymphocytes # (Auto) 1.5, Monocytes # (Auto) 0.9, Eosinophils # (Auto) 0.1, Basophils # (Auto) 0.0, Immature Granulocyte # (Auto) 0.1 QING KHAN MD Mar 19, 2022 11:08
[2022-03-19] MEDS: OXYTOCIN PRE-MIX DRIP 500 ML IV SCH ×2 (13:18→13:52)
--- NOTE | 2022-03-19 13:37 | OB Labor & Delivery Record ---
Vag Delivery Note Vag Delivery Note Date of Delivery: 03/19/22 Preoperative Diagnosis: Anayeli Montero is a (26 /Para 6 / 3, Gestational Age (wks)40.4 wga here in active labor Postoperative Diagnosis: Same Surgeon: QING KHAN MD Medical Equipment Repair Technician: None Anesthesia: Epidural Delivery Type: @ 1313 Findings: Viable male , apgars 8/9, weight 8#2, 3685 grams Lacerations: None Intact placenta with 3 vessel cord. No nuchal cord, body cord or shoulder dystocia Estimated Blood Loss: 125 ml Complications: None Condition: Stable Description of Procedure: The patient is a 26 year old female who presented in Active labor. She was admitted and informed consent was obtained. Her labor course was remarkable for pitocin augmentation. She progressed to complete dilatation and began to push. She was then set up for delivery. The infant's head was delivered atraumatically in the ADWOA position. The shoulders and remainder of the infant's body were then delivered without difficulty. Upon delivery, the head was held below the level of the perineum and the mouth and nares were bulb suctioned. The cord was doubly clamped and cut by FOB after 3 min delay and the was attended to by the pediatric staff on maternal abdomen. An intact placenta with 3-vessel cord delivered via [facility] and there was found to be minimal bleeding.~ Vigorous fundal massage was performed and the fundus was found to be firm. IV oxytocin was given. Examination of the vagina and perineum revealed no lacerations that require repair. Following the repair, sponge, instrument and needle counts were correct. Mom and baby were both in stable condition in the labor suite. Vitals - Labs Vital Signs - I&O Vital Signs Date Time Temp Pulse Resp B/P (MAP) Pulse Ox O2 Delivery O2 Flow Rate FiO2 03/19/22 07:10 82 16 117/68 (84) 98 Room Air 03/19/22 06:40 71 16 117/67 (84) 97 Room Air 03/19/22 06:16 36.7 03/19/22 06:10 83 16 114/63 (80) Room Air 03/19/22 06:00 36.6 78 16 98 Room Air 03/19/22 05:40 73 16 110/63 (79) Room Air Labs Laboratory Tests 03/19/22 05:00: Urine Color YELLOW, Urine Clarity CLEAR, Urine pH 7.0, Urine Specific [place] 1.020, Urine Protein NEGATIVE, Urine Glucose (UA) NEGATIVE, Urine Ketones NEGATIVE, Urine Nitrite NEGATIVE, Urine Bilirubin NEGATIVE, Urine Urobilinogen 0.2, Urine Leukocyte Esterase NEGATIVE, Urine RBC (Auto) NEGATIVE, Urine RBC RARE, Urine WBC 0-2, Urine Squamous Epithelial Cells 0-2, Urine Crystals PRESENTH, Urine Amorphous Sediment RARE REED URATESH, Urine Bacteria NEGATIVE, Urine Casts NONE, Urine Mucus NEGATIVE, Urine Culture Indicated NO 03/19/22 06:00: White Blood Count 9.4, Red Blood Count 3.81, Hemoglobin 11.6, Hematocrit 34L, Mean Corpuscular Volume 89, Mean Corpuscular Hemoglobin 30, Mean Corpuscular Hemoglobin Concent 34, Red Cell Distribution Width 12.9, Platelet Count 193, Mean Platelet Volume 9.0, Immature Granulocyte % (Auto) 1, Neutrophils (%) (Auto) 73, Lymphocytes (%) (Auto) 16, Monocytes (%) (Auto) 9, Eosinophils (%) (Auto) 1, Basophils (%) (Auto) 0, Neutrophils # (Auto) 6.9, Lymphocytes # (Auto) 1.5, Monocytes # (Auto) 0.9, Eosinophils # (Auto) 0.1, Basophils # (Auto) 0.0, Immature Granulocyte # (Auto) 0.1 QING KHAN MD Mar 19, 2022 13:37
[2022-03-19] MEDS ORDERED: fentaNYL 2 mcg/ml BUPIVA 0.125 100 ML IV SCH (13:45)
[2022-03-19] MEDS ORDERED: NALOXONE 0.4 MG/ML 1 ML (NARCAN) VIAL IV PRN (13:45)
[2022-03-19] MEDS ORDERED: LACTATED RINGERS 1,000 ML IV ONE (13:45)
[2022-03-19] MEDS ORDERED: BENZOCAINE/MENTHOL (DERMOPLAST) 56 ML CAN TP PRN (13:45)
[2022-03-19] MEDS ORDERED: diphenhydrAMINE 50 MG/ML INJ (BENADRYL) IV PRN (13:45)
[2022-03-19] MEDS ORDERED: CATHETER FLUSH 10 ML SYR IV PRN (13:45)
[2022-03-19] MEDS ORDERED: MEASLES,MUMPS,RUBELLA 1 EA INJ SQ ONE (13:45)
[2022-03-19] MEDS ORDERED: WITCH HAZEL(TUCKS) 40 EA JAR TOP PRN (13:45)
[2022-03-19] MEDS ORDERED: TETANUS,DIPTH,PERTUSS P/F (BOOSTRIX) 0.5 ML VIAL IM ONE (13:45)
[2022-03-19] MEDS ORDERED: ONDANSETRON 4 MG/2 ML (SDV) Z0FRAN IV PRN (13:45)
[2022-03-19] MEDS: ACETAMINOPHEN 500 MG TAB (TYLENOL) PO SCH ×2 (13:53→19:27)
[2022-03-19] MEDS: IBUPROFEN 600 MG (MOTRIN) TAB PO SCH ×2 (13:53→19:27)
[2022-03-19] MEDS: DOCUSATE SODIUM 100 MG (COLACE) CAP PO SCH (19:27)
[2022-03-20 00:39] VITALS: BP 104/58
[2022-03-20] MEDS: ACETAMINOPHEN 500 MG TAB (TYLENOL) PO SCH ×2 (00:40→13:42)
[2022-03-20] MEDS: IBUPROFEN 600 MG (MOTRIN) TAB PO SCH ×2 (01:45→09:37)
[2022-03-20 04:35] VITALS: BP 101/55
[2022-03-20 06:41] LABS: BASOPHILS # (AUTO) 0.1 10^3/uL (0.0-0.1); BASOPHILS % (AUTO) 1 % (0-10); EOSINOPHILS # (AUTO) 0.1 10^3/uL (0.0-0.3); EOSINOPHILS % (AUTO) 1 % (0-10); HEMATOCRIT 32 % (35-52); HEMOGLOBIN 10.8 g/dL (11.5-16.0); LYMPHOCYTES # (AUTO) 1.7 10^3/uL (1.0-4.0); LYMPHOCYTES % (AUTO) 20 % (12-44); MEAN CORPUSCULAR HEMOGLOBIN 31 pg (25-34); MEAN CORPUSCULAR HGB CONC 34 g/dL (32-36); MEAN CORPUSCULAR VOLUME 90 fL (80-99); MEAN PLATELET VOLUME 8.9 fL (9.0-12.2); MONOCYTES # (AUTO) 0.8 10^3/uL (0.0-1.0); MONOCYTES % (AUTO) 9 % (0-12); NEUTROPHILS # (AUTO) 6.1 10^3/uL (1.8-7.8); NEUTROPHILS % (AUTO) 69 % (42-75); PLATELET COUNT 165 10^3/uL (130-400); WHITE BLOOD COUNT 8.8 10^3/uL (4.3-11.0)
--- NOTE | 2022-03-20 09:28 | Short Stay Summary ---
Discharge Summary Hospital Course Final Diagnosis: s/p vaginal delivery Hospital Course Date of Admission: Mar 19, 2022 at 05:58 Admission Diagnosis : 1. 40w 4d GA, spontaneous labor 2. history of uterine prolapse following vaginal delivery Family Physician/Provider: Mabel Date of Discharge: 03/20/22 Discharge Diagnosis: 1. s/p 03/19/22 Hospital Course: Routine course. Hb 10.8 Labs and Pending Lab Test: Laboratory Tests 03/20/22 06:26: White Blood Count 8.8, Red Blood Count 3.54L, Hemoglobin 10.8L, Hematocrit 32L, Mean Corpuscular Volume 90, Mean Corpuscular Hemoglobin 31, Mean Corpuscular Hemoglobin Concent 34, Red Cell Distribution Width 13.1, Platelet Count 165, Mean Platelet Volume 8.9L, Immature Granulocyte % (Auto) 0, Neutrophils (%) (Auto) 69, Lymphocytes (%) (Auto) 20, Monocytes (%) (Auto) 9, Eosinophils (%) (Auto) 1, Basophils (%) (Auto) 1, Neutrophils # (Auto) 6.1, Lymphocytes # (Auto) 1.7, Monocytes # (Auto) 0.8, Eosinophils # (Auto) 0.1, Basophils # (Auto) 0.1, Immature Granulocyte # (Auto) 0.0 Home Meds Active Acetaminophen 500 Mg Tablet 1,000 Mg PO Q8HR Ibu (Ibuprofen) 600 Mg Tablet 600 Mg PO Q6HR Reported Vitamin Tablet ( Vit No.124/Iron/FA) 1 Each Tablet 1 Each PO DAILY Assessment/Pt Instructions Follow up with Dr. Monroe in 6 weeks Discharge Physical Examination General Appearance: Alert, Oriented X3, Cooperative Psych/Mental Status: Mental Status NL, Mood NL Allergies: Coded Allergies: No Known Drug Allergies (Unverified , 04/28/19) Discharge Summary Date of Admission Mar 19, 2022 at 05:58 Date of Discharge CHINEDU GARCIA DO Mar 20, 2022 09:28
[2022-03-20 09:30] VITALS: BP 108/55
[2022-03-20] MEDS: DOCUSATE SODIUM 100 MG (COLACE) CAP PO SCH (09:37)
[2022-03-20 13:39] VITALS: BP 100/59
[2022-03-20] MEDS ORDERED: IBUPROFEN 600 MG (MOTRIN) TAB PO SCH (15:00)
[2022-03-20 16:45] VITALS: BP 100/59
== END 2022-03-20 16:45 | disposition home or self-care (01) | DRG 807 ==
LOC: WSo 05:00 → LDRP 05:00 → UNDOADMIN 05:58 → WSo 05:58 → LDRP 05:58 → UNDODISIN 03-20 16:45 → EDSTATUS 03-28 15:01
PROVIDERS: ADMIT Family Medicine; ATTEND Family Medicine
PROC: 10E0XZZ Delivery of Products of Conception, External Approach (ICD-10-PCS; principal; 2022-03-19)
DX: O48.0 Post-term pregnancy (principal); Z37.0 Single live birth; Z3A.40 40 weeks gestation of pregnancy; Z87.59 Personal history of other complications of pregnancy, childbirth and the puerperium; Z28.310 Unvaccinated for COVID-19
CPT/HCPCS: 36415; 81000; 85025; 86780; 86850; 86900; 86901; 99212